=== PATIENT | female | born 1970 | race Caucasian/White ===

== ENCOUNTER 2016-08-22 12:04 | Inpatient (IN) | payer OTHER ==
[~2016-08-22] VITALS: Ht 157.5 cm; Wt 61.4 kg
[2016-08-22] VITALS (26 sets, daily range): BP systolic 100–179; BP diastolic 69–111; PULSE 62–109; TEMP 97.5–98.3
[2016-08-22] MEDS ORDERED: XANAX 0.5MG0.5 MG PO (12:09)
[2016-08-22] MEDS ORDERED: SOMA 350MG350 MG/TAB PO (12:09)
[2016-08-22] MEDS ORDERED: FIORINAL W/CODE1 CA2 PO (12:09)
[2016-08-22] MEDS ORDERED: AMBIEN 10MG10 MG PO (12:10)
[2016-08-22 12:50] LABS: BASO % 0.6 % (0.0-2.0); EOS # 0.2 (0.0-0.7); EOS % 2.7 % (0-4.0); GRAN % 63.5 % (42.2-75.2); LYMPH # 1.7 (1.2-3.4); LYMPH % 26.2 % (20.0-51.0); MEAN CELL VOLUME 76 fl (80.0-100.0); MEAN CORPUSCULAR HGB CONC 30 g/dl (33.0-37.0); MEAN PLATELET VOLUME 8.9 fl (7.4-10.4); MONO # 0.4 (0.1-0.6); PLATELET COUNT 453 K/mm3 (130-400); RED BLOOD COUNT 1.88 M/mm3 (4.10-5.30); REDCELL DISTRIBUTION WIDTH-CV 18.8 % (11.5-14.5); WHITE BLOOD COUNT 6.3 K/mm3 (4.8-10.8)
[2016-08-22 12:53] LABS: HEMOGLOBIN 4.3 g/dl (12.5-16.0); MEAN CORPUSCULAR HEMOGLOBIN 23 pg (27.0-31.0)
[2016-08-22 12:54] LABS: HEMATOCRIT 14.3 % (37.0-47.0)
[2016-08-22 13:05] LABS: ADJUSTED CALCIUM 9.3 mg/dL (8.4-10.2); ALBUMIN 2.9 gm/dL (3.5-5.0); BILIRUBIN,TOTAL 0.3 mg/dL (0.0-1.0); CALCIUM 8.4 mg/dL (8.4-10.2); CREATININE, serum 0.66 mg/dL (0.52-1.25); POTASSIUM 3.9 mmol/L (3.4-5.0)
[2016-08-22 18:59] LABS: HEMATOCRIT 27.7 % (37.0-47.0)
[2016-08-23] VITALS (7 sets, daily range): BP systolic 121–142; BP diastolic 70–84; PULSE 69–88; TEMP 98–98.3
[2016-08-23 09:07] LABS: MEAN CORPUSCULAR HGB CONC 34 g/dl (33.0-37.0); MEAN PLATELET VOLUME 9.5 fl (7.4-10.4); RED BLOOD COUNT 3.04 M/mm3 (4.10-5.30); REDCELL DISTRIBUTION WIDTH-CV 17.2 % (11.5-14.5); WHITE BLOOD COUNT 16.8 K/mm3 (4.8-10.8)
[2016-08-23 09:12] LABS: HEMOGLOBIN 8.5 g/dl (12.5-16.0); MEAN CELL VOLUME 82 fl (80.0-100.0); MEAN CORPUSCULAR HEMOGLOBIN 28 pg (27.0-31.0); PLATELET COUNT 320 K/mm3 (130-400)
[2016-08-23 09:13] LABS: ADD PATHOLOGY DIFF REVIEW NO
[2016-08-23 09:53] LABS: BAND 1 % (0-10); NEUTROPHILS 59 % (42.0-75.2); TOTAL CELLS COUNTED 100
[2016-08-24 05:15] VITALS: BP 127/74; PULSE 82; TEMP 98.7
[2016-08-24 07:00] VITALS: BP 131/84; PULSE 78; TEMP 98.1
[2016-08-24 12:01] VITALS: BP 128/76; PULSE 80; TEMP 98.2
[2016-08-24 17:10] VITALS: BP 122/86; PULSE 87; TEMP 98.2
[2016-08-24 22:45] VITALS: BP 119/80; PULSE 92; TEMP 98
[2016-08-25 08:05] VITALS: BP 111/80; PULSE 86; TEMP 97.7
[2016-08-25] MEDS ORDERED: IBU800 M1 PO (08:48)
[2016-08-25] MEDS ORDERED: PERCOCET 325 MG1 TA2 PO (08:48)
== END 2016-08-25 12:00 | disposition home or self-care (01) | DRG 743 ==
LOC: COL.ER 12:04 → OB 15:41
PROVIDERS: Emergency Medicine; Obstetrics & Gynecology
PROC: 0UTC0ZZ Resection of Cervix, Open Approach (ICD-10-PCS; 2016-08-22)
PROC: 0UB70ZZ Excision of Bilateral Fallopian Tubes, Open Approach (ICD-10-PCS; 2016-08-22)
PROC: 0UT90ZZ Resection of Uterus, Open Approach (ICD-10-PCS; principal; 2016-08-22 15:30)
DX: N92.0 Excessive and frequent menstruation with regular cycle (principal); D50.0 Iron deficiency anemia secondary to blood loss (chronic); D25.9 Leiomyoma of uterus, unspecified; Z87.891 Personal history of nicotine dependence
CPT/HCPCS: A4315; J0330; J0690; J1100; J1170; J1885; J2270; J2405; J2550; J2704; J2710; J2765; J3010; J7030; P9016

== ENCOUNTER → 2018-06-22 | Outpatient (CLI) | payer SELFPAY ==
[~2018-06-22] VITALS: Ht 157.5 cm; Wt 65.4 kg
[2018-06-22] VITALS (14 sets, daily range): BP systolic 118–146; BP diastolic 83–101; PULSE 90–103
[~2018-06-22] MED LIST: ACETA; AMBIEN 10MG10 MG PO; BUTAL; CAFF; COD; FIORINAL W/CODE1 CA2 PO; FLEXERIL 1010 MG/TAB PO; IBU800 M1 PO; LIDODERM 5% PATC1 EA TP; NORCO 325 MG-51 TAB PO; PERCOCET 325 MG1 TA2 PO; PREDNISONE20 MG PO; SOMA 350MG350 MG/TAB PO; VALTREX 50500 MG/TAB PO; XANAX 0.5MG0.5 MG PO
--- NOTE | 2018-06-22 14:35 | NUR ---
pt to ct per wheelchair. Pt assisted onto ct table in prone position. Monitors applied.
--- NOTE | 2018-06-22 14:45 | NUR ---
Dr Mcgrath into room and talks with pt. regarding procedure.
--- NOTE | 2018-06-22 15:00 | NUR ---
specimen obtained by Dr Mcgrath and placed in formalin. Specimen labeled.
== END ==
LOC: COL.RAD 11:00
DX: C79.51 Secondary malignant neoplasm of bone (principal); R91.1 Solitary pulmonary nodule; R59.0 Localized enlarged lymph nodes; N83.202 Unspecified ovarian cyst, left side; Z98.82 Breast implant status; Z85.42 Personal history of malignant neoplasm of other parts of uterus
CPT/HCPCS: Q9967

== ENCOUNTER 2018-06-25 11:58 | Emergency (ER) | payer SELFPAY ==
[~2018-06-25] VITALS: Ht 157.5 cm; Wt 62.7 kg
[2018-06-25 12:10] VITALS: TEMP 97.8
[2018-06-25] MEDS ORDERED: SOMA 350MG350 MG/TAB PO (12:48)
[2018-06-25] MEDS ORDERED: MS CONTIN 330 MG/TAB PO (12:49)
[2018-06-25] MEDS ORDERED: DECADRON 4MG TAB4 MG PO (12:50)
[2018-06-25 13:38] VITALS: BP 145/94; PULSE 109
== END 2018-06-25 13:53 | disposition short-term general hospital (02) ==
LOC: COL.ER 11:58
DX: G95.20 Unspecified cord compression (principal); Z87.891 Personal history of nicotine dependence; Z98.51 Tubal ligation status
CPT/HCPCS: J1100; J2060; J2270

== ENCOUNTER 2018-08-24 07:48 | Day surgery (SDC) | payer MEDICAID ==
[~2018-08-24] VITALS: Ht 157.5 cm; Wt 65.0 kg
[~2018-08-24 07:48] MED LIST changes: +DECADRON 4MG TAB4 MG PO; +MS CONTIN 330 MG/TAB PO
[2018-08-24 08:09] VITALS: BP 149/97; PULSE 101; TEMP 97.8
[2018-08-24] MEDS ORDERED: ROXICODONE 55 MG/TAB PO ×2 (08:09→10:17)
[2018-08-24] MEDS ORDERED: XANAX 1MG1 MG PO (08:09)
--- NOTE | 2018-08-24 08:42 | NUR ---
Notified Erwin Lewis CRNA that patient ate edible Marijuana gummies yesterday morning.
--- NOTE | 2018-08-24 09:00 | NUR ---
Notified Dr. Miranda of patient's use of edible marijuana yesterday AM.
[2018-08-24 10:17] VITALS: BP 155/96; PULSE 110; TEMP 98.3
--- NOTE | 2018-08-24 10:17 | NUR ---
Patient arrives to [facility] [place] 6 via cart, accomanied by OTF Bain and [employer] TENDER HELPER Monica. She is alert and oriented. Bedside report received. Patient denies any pain or nausea. Monitoring applied - VSS on room air. Family brought to the bedside. Dr. Miranda stops by the bedside and speaks with patient and family. Patient offered and receives juice to drink; does not want any other food. Call light usage taught and within reach. Will continue to monitor.
[2018-08-24 10:30] VITALS: BP 132/81; PULSE 103
--- NOTE | 2018-08-24 10:30 | NUR ---
VSS on room air. Patient resting comfortably in room. Denies any pain, nausea, or need. Tolerating PO well. Her operative site is covered by a clean, dry, intact dressing.
[2018-08-24 10:45] VITALS: BP 139/94; PULSE 105
--- NOTE | 2018-08-24 10:45 | NUR ---
VSS on room air. Patient resting comfortably in room. Family at bedside.
[2018-08-24 11:00] VITALS: BP 141/99; PULSE 97
--- NOTE | 2018-08-24 11:09 | NUR ---
Discharge criteria has been met. Discharge instructions discussed, denies any questions, and verbalizes understanding. Given paper packet including discharge instructions, education, [id number] card with information, and paper prescription for roxicodone. Patient changing to clothing independently.
--- NOTE | 2018-08-24 11:18 | NUR ---
Patient escorted to exit via wheelchair by SALLIE Wyatt. Discharged to home with ride in private vehicle at 1118.
== END 2018-08-24 11:18 | disposition home or self-care (01) ==
LOC: SDCO 07:48
DX: C54.2 Malignant neoplasm of myometrium (principal); C79.49 Secondary malignant neoplasm of other parts of nervous system; F32.9 Major depressive disorder, single episode, unspecified; G43.909 Migraine, unspecified, not intractable, without status migrainosus; I25.10 Atherosclerotic heart disease of native coronary artery without angina pectoris; E78.00 Pure hypercholesterolemia, unspecified; F41.9 Anxiety disorder, unspecified; Z90.710 Acquired absence of both cervix and uterus; Z90.79 Acquired absence of other genital organ(s); Z80.0 Family history of malignant neoplasm of digestive organs; Z82.61 Family history of arthritis; Z85.3 Personal history of malignant neoplasm of breast; Z82.3 Family history of stroke
CPT/HCPCS: C1788; J0690; J1644; J2250; J2704; J7120

== ENCOUNTER 2019-04-15 14:56 | Outpatient (RCR) | payer MEDICAID ==
[~2019-04-15 14:56] MED LIST changes: +ROXICODONE 55 MG/TAB PO; +XANAX 1MG1 MG PO
== END 2019-07-14 | disposition home or self-care (01) ==
LOC: MKS.ESL.PT
DX: C49.8 Malignant neoplasm of overlapping sites of connective and soft tissue (principal); I10 Essential (primary) hypertension

== ENCOUNTER → 2019-10-18 | Outpatient (CLI) | payer MEDICAID | LOC: COL.VAS 09:15 | DX: Z01.818 Encounter for other preprocedural examination (principal) ==

== ENCOUNTER → 2019-12-01 | Outpatient (CLI) | payer MEDICARE, MEDICAID | LOC: COL.RAD 07:53 | DX: C55 Malignant neoplasm of uterus, part unspecified (principal); R91.1 Solitary pulmonary nodule; R19.00 Intra-abdominal and pelvic swelling, mass and lump, unspecified site; Z90.710 Acquired absence of both cervix and uterus; Z98.82 Breast implant status; Z95.9 Presence of cardiac and vascular implant and graft, unspecified | CPT/HCPCS: J1644; Q9967 ==

== ENCOUNTER 2019-12-13 11:22 | Day surgery (SDC) | payer MEDICARE, MEDICAID ==
[~2019-12-13] VITALS: Ht 157.5 cm; Wt 60.2 kg
[2019-12-13 12:15] VITALS: BP 134/86; PULSE 81; TEMP 97.8
[2019-12-13] MEDS ORDERED: ROXICODONE 55 MG/TAB PO (12:21)
[2019-12-13] MEDS ORDERED: AMBIEN 10MG10 MG PO (12:22)
[2019-12-13] MEDS ORDERED: FIORICET 325 MG1 TA1 PO (12:22)
--- NOTE | 2019-12-13 12:23 | NUR ---
TO RM AT 1146- CALL LIGHT IN REACH FATHER WILL BE CALLED AT TIME OF DISCHARGE FOR RIDE HOME
[2019-12-13 13:43] VITALS: BP 131/92; PULSE 83; TEMP 97.3
--- NOTE | 2019-12-13 13:43 | NUR ---
TO RM 1 PER CART FROM OR. DROWSY AND ORIENTED X3, TALKING WITH STAFF. DENIES PAIN OR DISCOMFORT. SEROSANGUINOUS DRAINAGE NOTED UNDER OPSITE. RECEIVED WATER.
[2019-12-13 14:00] VITALS: BP 156/106; PULSE 61
--- NOTE | 2019-12-13 14:00 | NUR ---
SEROSANGUINOUS DRAINAGE UNCHANGED AND NO ACTIVE BLEEDING NOTED.
[2019-12-13 14:15] VITALS: BP 145/102; PULSE 60
[2019-12-13 14:30] VITALS: BP 152/97; PULSE 72
--- NOTE | 2019-12-13 14:30 | NUR ---
RECEIVED MUFFIN AND 2ND GLASS OF WATER.
--- NOTE | 2019-12-13 14:45 | NUR ---
AMBULATED TO BATHROOM WITH STAND BY ASSIST. VOIDED AND AMBULATED BACK TO BED. SAI FROM IV SERVICES CALLED CONCERNING CENTRAL LINE CARES.
--- NOTE | 2019-12-13 15:00 | NUR ---
RECEIVED DISCHARGE INSTRUCTIONS. TO KEEP CLEAN DRY AND COVERED. SAI HERE AND PLACED A CHLORHEXADINE DRESSING OVER SIEGEL INCISION SITE. MESSAGE LEFT WITH DR RUTHERFORD OFFICE FOR ANIKET. TO FOLLOW UP WITH SIEGEL DRESSING CHANGES TO BE DONE IN [facility]. PATIENT VERBALIZED UNDERSTANDING. IN INSTRUCTED HER TO FOLLOW UP WITH DR BARRERA OFFICE IF THEY HAVEN'T CALLED THER BY TOMORROW FOR ORDERS FOR DRESSING CHANGES.
--- NOTE | 2019-12-13 15:00 | NUR ---
Contacted regarding Umanzor cares. Hickmen catheter present right upper ches with sutures intact. op site on top of catheter. explained cares to patient. with sterile technique right upper chest catheter site cleansed with chloraprep x 1, chlorhexidine impregnated disk applied, skin prep, and tegaderm applied. catheter extension wrapped in gauze and secured with tegaderm. explained to keep dressing dry. to make sure catheter doesn't get caught on clothing and pulled out. RN reported Heparin was instilled. to return next week for cares in [place]. voiced understanding of instructions.
--- NOTE | 2019-12-13 15:20 | NUR ---
DISCHARGED PER WC BY NURSING STAFF TO PRIVATE CAR IN CARE OF FATHER.
== END 2019-12-13 15:42 | disposition home or self-care (01) ==
LOC: SDCO 11:22
DX: C54.2 Malignant neoplasm of myometrium (principal); C79.49 Secondary malignant neoplasm of other parts of nervous system; R63.4 Abnormal weight loss; D63.0 Anemia in neoplastic disease; Z88.8 Allergy status to other drugs, medicaments and biological substances; Z79.899 Other long term (current) drug therapy; Z80.0 Family history of malignant neoplasm of digestive organs
CPT/HCPCS: J0690; J1644; J2250; J2704; J3010; J7120

== ENCOUNTER 2020-03-13 10:30 | Outpatient (RCR) | payer MEDICARE, MEDICAID ==
[2019-12-15 14:45] VITALS: BP 119/82; PULSE 89; TEMP 98
--- NOTE | 2019-12-15 15:00 | NUR ---
patient here for cares. Patient has a nontender also been catheter present in her right upper chest. With sterile technique Umanzor dressing change done with insertion site cleansed with ChloraPrep 1, chlorhexidine impregnated disc applied, skin prep, and Tegaderm applied. No signs or symptoms of IV complications noted. No concerns voiced. Sutures intact. Extension wrapped in gauze and secured with Tegaderm. Port flushed with 10 mL normal saline with good blood return noted. Patient to return on December 19 for cares. Patient voiced understanding of instructions. Appointment card given to patient by primary care nurse.
[2019-12-20 14:44] LABS: HEMOGLOBIN 11.8 g/dl (12.5-16.0); MEAN CELL VOLUME 95 fl (80.0-100.0); MEAN CORPUSCULAR HEMOGLOBIN 31 pg (27.0-31.0); MEAN CORPUSCULAR HGB CONC 33 g/dl (33.0-37.0); MEAN PLATELET VOLUME 9.8 fl (7.4-10.4); PLATELET COUNT 232 K/mm3 (130-400); RED BLOOD COUNT 3.82 M/mm3 (4.10-5.30); REDCELL DISTRIBUTION WIDTH-CV 12.7 % (11.5-14.5)
[2019-12-20 14:48] VITALS: BP 133/82; PULSE 87; TEMP 98.1
[2019-12-20 14:53] LABS: HEMATOCRIT 36.2 % (37.0-47.0)
[2019-12-20 14:59] LABS: BILIRUBIN,TOTAL 0.4 mg/dL (0.0-1.0); CALCIUM 9.2 mg/dL (8.4-10.2); CREATININE, serum 0.86 (0.52-1.25); POTASSIUM 3.9 mmol/L (3.4-5.0); TOTAL PROTEIN 7.4 gm/dL (6.4-8.2)
[2019-12-20 15:36] LABS: BAND 1 % (0-10); EOSINOPHIL 4 % (0-4); HYPOCHROMIA 1+; LYMPHOCYTE 25 % (20.0-51.0); METAMYELOCYTE 1 % (0-0); NEUTROPHILS 61 % (42.0-75.2); PLATELET ESTIMATE NORMAL (NORMAL)
[2019-12-27 13:41] LABS: HEMOGLOBIN 11.9 g/dl (12.5-16.0); MEAN CELL VOLUME 95 fl (80.0-100.0); MEAN CORPUSCULAR HEMOGLOBIN 31 pg (27.0-31.0); MEAN CORPUSCULAR HGB CONC 33 g/dl (33.0-37.0); PLATELET COUNT 236 K/mm3 (130-400); RED BLOOD COUNT 3.85 M/mm3 (4.10-5.30); REDCELL DISTRIBUTION WIDTH-CV 12.5 % (11.5-14.5)
[2019-12-27 13:42] LABS: HEMATOCRIT 36.5 % (37.0-47.0)
[2019-12-27 13:48] VITALS: BP 121/79; PULSE 94; TEMP 98.4
[2019-12-27 13:59] LABS: EOSINOPHIL 2 % (0-4); NEUTROPHILS 69 % (42.0-75.2); PLATELET ESTIMATE NORMAL (NORMAL)
[2019-12-27 14:01] LABS: LYMPHOCYTE 28 % (20.0-51.0)
[2020-01-03 14:11] VITALS: BP 121/80; PULSE 104; TEMP 98.2
[2020-01-03 14:42] LABS: HEMOGLOBIN 10.5 g/dl (12.5-16.0); MEAN CELL VOLUME 94 fl (80.0-100.0); MEAN CORPUSCULAR HEMOGLOBIN 30 pg (27.0-31.0); MEAN CORPUSCULAR HGB CONC 32 g/dl (33.0-37.0); MEAN PLATELET VOLUME 9.1 fl (7.4-10.4); PLATELET COUNT 248 K/mm3 (130-400); REDCELL DISTRIBUTION WIDTH-CV 12.9 % (11.5-14.5)
[2020-01-03 14:45] LABS: ALBUMIN 3.8 gm/dL (3.5-5.0); BILIRUBIN,TOTAL 0.3 mg/dL (0.0-1.0); CALCIUM 9.1 mg/dL (8.4-10.2); CREATININE, serum 0.79 (0.52-1.25); HEMATOCRIT 32.9 % (37.0-47.0); POTASSIUM 3.8 mmol/L (3.4-5.0); TOTAL PROTEIN 7.1 gm/dL (6.4-8.2)
[2020-01-03 22:11] LABS: LYMPHOCYTE 27 % (20.0-51.0); NEUTROPHILS 65 % (42.0-75.2); PLATELET ESTIMATE NORMAL (NORMAL)
[2020-01-10 13:55] LABS: HEMOGLOBIN 10.5 g/dl (12.5-16.0); MEAN CELL VOLUME 95 fl (80.0-100.0); MEAN CORPUSCULAR HEMOGLOBIN 31 pg (27.0-31.0); MEAN CORPUSCULAR HGB CONC 33 g/dl (33.0-37.0); MEAN PLATELET VOLUME 8.9 fl (7.4-10.4); PLATELET COUNT 284 K/mm3 (130-400); RED BLOOD COUNT 3.37 M/mm3 (4.10-5.30); REDCELL DISTRIBUTION WIDTH-CV 13.2 % (11.5-14.5)
[2020-01-10 13:56] LABS: HEMATOCRIT 31.9 % (37.0-47.0)
[2020-01-10 13:58] VITALS: BP 110/79; PULSE 98; TEMP 97.9
[2020-01-10 14:14] LABS: LYMPHOCYTE 32 % (20.0-51.0); NEUTROPHILS 57 % (42.0-75.2); PLATELET ESTIMATE NORMAL (NORMAL)
--- NOTE | 2020-01-10 16:04 | NUR ---
PT CAME FOR SIEGEL CARES. THIS RN NOTED REDNESS AND MILD DRAINAGE FROM INSERTION SITE. WILL CALL DR RUTHERFORD'S OFFICE.
[2020-01-17 14:25] VITALS: BP 115/72; PULSE 82; TEMP 98.1
[2020-01-17 14:51] LABS: HEMOGLOBIN 11.4 g/dl (12.5-16.0); MEAN CELL VOLUME 94 fl (80.0-100.0); MEAN CORPUSCULAR HEMOGLOBIN 30 pg (27.0-31.0); MEAN CORPUSCULAR HGB CONC 32 g/dl (33.0-37.0); MEAN PLATELET VOLUME 9.4 fl (7.4-10.4); PLATELET COUNT 207 K/mm3 (130-400); RED BLOOD COUNT 3.76 M/mm3 (4.10-5.30); REDCELL DISTRIBUTION WIDTH-CV 13.2 % (11.5-14.5)
[2020-01-17 14:52] LABS: HEMATOCRIT 35.5 % (37.0-47.0)
[2020-01-17 15:31] LABS: BAND 5 % (0-10); LYMPHOCYTE 21 % (20.0-51.0); NEUTROPHILS 67 % (42.0-75.2); PLATELET ESTIMATE NORMAL (NORMAL)
--- NOTE | 2020-01-20 10:15 | NUR ---
Pt called unit and reported she got her dressing wet,requested dressing change today.apt made for today.will keep regular scheduled apt for tuesdays.
[2020-01-20 17:41] VITALS: BP 119/76; PULSE 94; TEMP 98.2
[2020-01-24 14:11] VITALS: BP 112/82; PULSE 95; TEMP 98
[2020-01-24 14:11] LABS: HEMOGLOBIN 10.5 g/dl (12.5-16.0); MEAN CELL VOLUME 94 fl (80.0-100.0); MEAN CORPUSCULAR HEMOGLOBIN 31 pg (27.0-31.0); MEAN CORPUSCULAR HGB CONC 33 g/dl (33.0-37.0); MEAN PLATELET VOLUME 9.1 fl (7.4-10.4); PLATELET COUNT 189 K/mm3 (130-400); RED BLOOD COUNT 3.38 M/mm3 (4.10-5.30); REDCELL DISTRIBUTION WIDTH-CV 13.3 % (11.5-14.5)
[2020-01-24 14:13] LABS: HEMATOCRIT 31.7 % (37.0-47.0)
[2020-01-24 14:34] LABS: ALBUMIN 3.8 gm/dL (3.5-5.0); BILIRUBIN,TOTAL 0.3 mg/dL (0.0-1.0); CREATININE, serum 0.8 (0.52-1.25); POTASSIUM 4.5 mmol/L (3.4-5.0)
[2020-01-24 15:02] LABS: EOSINOPHIL 1 % (0-4); LYMPHOCYTE 34 % (20.0-51.0); METAMYELOCYTE 1 % (0-0); NEUTROPHILS 52 % (42.0-75.2)
[2020-01-24 15:03] LABS: PLATELET ESTIMATE NORMAL (NORMAL)
[2020-01-31 11:41] VITALS: BP 126/83; PULSE 97; TEMP 98.6
[2020-01-31 11:55] LABS: MEAN CELL VOLUME 94 fl (80.0-100.0); MEAN CORPUSCULAR HEMOGLOBIN 31 pg (27.0-31.0); MEAN CORPUSCULAR HGB CONC 33 g/dl (33.0-37.0); MEAN PLATELET VOLUME 8.8 fl (7.4-10.4); PLATELET COUNT 285 K/mm3 (130-400); RED BLOOD COUNT 3.54 M/mm3 (4.10-5.30); REDCELL DISTRIBUTION WIDTH-CV 13.8 % (11.5-14.5)
[2020-01-31 11:57] LABS: HEMATOCRIT 33.1 % (37.0-47.0)
[2020-01-31 12:05] LABS: ALBUMIN 4.3 gm/dL (3.5-5.0); BILIRUBIN,TOTAL 0.3 mg/dL (0.0-1.0); CALCIUM 9.6 mg/dL (8.4-10.2); CREATININE, serum 0.82 (0.52-1.25); POTASSIUM 3.9 mmol/L (3.4-5.0); TOTAL PROTEIN 7.6 gm/dL (6.4-8.2)
[2020-01-31 12:13] LABS: BAND 1 % (0-10); BASOPHIL 1 % (0-2); EOSINOPHIL 1 % (0-4); LYMPHOCYTE 37 % (20.0-51.0); METAMYELOCYTE 1 % (0-0); NEUTROPHILS 48 % (42.0-75.2); NUCLEATED RED BLOOD CELL 1 (0-6); PLATELET ESTIMATE NORMAL (NORMAL)
[2020-02-07 17:12] VITALS: BP 116/77; PULSE 95; TEMP 97.8
[2020-02-07 17:12] LABS: HEMOGLOBIN 10.2 g/dl (12.5-16.0); MEAN CELL VOLUME 94 fl (80.0-100.0); MEAN CORPUSCULAR HEMOGLOBIN 31 pg (27.0-31.0); MEAN CORPUSCULAR HGB CONC 33 g/dl (33.0-37.0); PLATELET COUNT 225 K/mm3 (130-400); RED BLOOD COUNT 3.25 M/mm3 (4.10-5.30); REDCELL DISTRIBUTION WIDTH-CV 13.8 % (11.5-14.5)
[2020-02-07 17:27] LABS: ALBUMIN 3.9 gm/dL (3.5-5.0); BILIRUBIN,TOTAL 0.2 mg/dL (0.0-1.0); CALCIUM 8.7 mg/dL (8.4-10.2); CREATININE, serum 0.85 (0.52-1.25); POTASSIUM 4.3 mmol/L (3.4-5.0)
[2020-02-07 17:58] LABS: HEMATOCRIT 30.6 % (37.0-47.0)
[2020-02-07 18:37] LABS: BAND 1 % (0-10); BASOPHIL 2 % (0-2); NEUTROPHILS 68 % (42.0-75.2); PLATELET ESTIMATE NORMAL (NORMAL)
[2020-02-07 18:38] LABS: LYMPHOCYTE 27 % (20.0-51.0)
[2020-02-14 14:18] VITALS: BP 107/66; PULSE 96; TEMP 98.2
[2020-02-14 14:27] LABS: ALBUMIN 3.9 gm/dL (3.5-5.0); BILIRUBIN,TOTAL 0.1 mg/dL (0.0-1.0); CALCIUM 8.9 mg/dL (8.4-10.2); CREATININE, serum 0.77 (0.52-1.25); POTASSIUM 3.9 mmol/L (3.4-5.0); TOTAL PROTEIN 6.8 gm/dL (6.4-8.2)
[2020-02-14 14:47] LABS: MEAN CELL VOLUME 94 fl (80.0-100.0); MEAN CORPUSCULAR HGB CONC 33 g/dl (33.0-37.0); MEAN PLATELET VOLUME 9.4 fl (7.4-10.4); PLATELET COUNT 173 K/mm3 (130-400); RED BLOOD COUNT 2.96 M/mm3 (4.10-5.30)
[2020-02-14 14:51] LABS: HEMATOCRIT 27.9 % (37.0-47.0); HEMOGLOBIN 9.2 g/dl (12.5-16.0); MEAN CORPUSCULAR HEMOGLOBIN 31 pg (27.0-31.0)
[2020-02-14 15:19] LABS: EOSINOPHIL 3 % (0-4); LYMPHOCYTE 45 % (20.0-51.0); MYELOCYTE 2 % (0-0); NEUTROPHILS 42 % (42.0-75.2); PLATELET ESTIMATE NORMAL (NORMAL)
[2020-02-17 13:44] LABS: MEAN CELL VOLUME 95 fl (80.0-100.0); MEAN CORPUSCULAR HGB CONC 33 g/dl (33.0-37.0); MEAN PLATELET VOLUME 8.8 fl (7.4-10.4); PLATELET COUNT 224 K/mm3 (130-400); RED BLOOD COUNT 2.79 M/mm3 (4.10-5.30); REDCELL DISTRIBUTION WIDTH-CV 14.3 % (11.5-14.5)
[2020-02-17 13:51] LABS: HEMATOCRIT 26.5 % (37.0-47.0); HEMOGLOBIN 8.7 g/dl (12.5-16.0); MEAN CORPUSCULAR HEMOGLOBIN 31 pg (27.0-31.0)
[2020-02-17 14:08] LABS: BAND 6 % (0-10); EOSINOPHIL 3 % (0-4); LYMPHOCYTE 48 % (20.0-51.0); METAMYELOCYTE 1 % (0-0); NEUTROPHILS 32 % (42.0-75.2)
[2020-02-17 14:09] LABS: PLATELET ESTIMATE NORMAL (NORMAL)
[2020-02-21 16:02] LABS: HEMOGLOBIN 10.1 g/dl (12.5-16.0); MEAN CELL VOLUME 95 fl (80.0-100.0); MEAN CORPUSCULAR HEMOGLOBIN 31 pg (27.0-31.0); MEAN CORPUSCULAR HGB CONC 33 g/dl (33.0-37.0); MEAN PLATELET VOLUME 8.9 fl (7.4-10.4); PLATELET COUNT 262 K/mm3 (130-400); RED BLOOD COUNT 3.24 M/mm3 (4.10-5.30); REDCELL DISTRIBUTION WIDTH-CV 14.8 % (11.5-14.5)
[2020-02-21 16:03] LABS: HEMATOCRIT 30.7 % (37.0-47.0)
[2020-02-21 16:13] LABS: ALBUMIN 4.1 gm/dL (3.5-5.0); BILIRUBIN,TOTAL 0.2 mg/dL (0.0-1.0); CALCIUM 9.1 mg/dL (8.4-10.2); CREATININE, serum 0.8 (0.52-1.25); POTASSIUM 4.1 mmol/L (3.4-5.0); TOTAL PROTEIN 7.1 gm/dL (6.4-8.2)
[2020-02-21 16:29] VITALS: BP 128/82; PULSE 94; TEMP 98
[2020-02-21 17:17] LABS: ANISOCYTOSIS 1+; BAND 1 % (0-10); EOSINOPHIL 1 % (0-4); LYMPHOCYTE 43 % (20.0-51.0); MYELOCYTE 2 % (0-0); NEUTROPHILS 40 % (42.0-75.2); PLATELET ESTIMATE NORMAL (NORMAL)
[2020-02-28 13:54] LABS: MEAN CELL VOLUME 96 fl (80.0-100.0); MEAN CORPUSCULAR HEMOGLOBIN 32 pg (27.0-31.0); MEAN CORPUSCULAR HGB CONC 33 g/dl (33.0-37.0); PLATELET COUNT 224 K/mm3 (130-400); RED BLOOD COUNT 3.17 M/mm3 (4.10-5.30); REDCELL DISTRIBUTION WIDTH-CV 15.3 % (11.5-14.5)
[2020-02-28 13:58] LABS: HEMATOCRIT 30.3 % (37.0-47.0)
[2020-02-28 14:00] VITALS: BP 137/93; PULSE 97; TEMP 98
[2020-02-28 14:18] LABS: BAND 53 % (0-10); LYMPHOCYTE 7 % (20.0-51.0); NEUTROPHILS 17 % (42.0-75.2)
[2020-02-28 14:19] LABS: PLATELET ESTIMATE NORMAL (NORMAL)
[2020-03-06 12:52] VITALS: BP 118/81; PULSE 93; TEMP 97.9
[2020-03-06 12:57] LABS: MEAN CELL VOLUME 97 fl (80.0-100.0); MEAN CORPUSCULAR HGB CONC 33 g/dl (33.0-37.0); MEAN PLATELET VOLUME 9.4 fl (7.4-10.4); PLATELET COUNT 188 K/mm3 (130-400); RED BLOOD COUNT 3.13 M/mm3 (4.10-5.30)
[2020-03-06 13:12] LABS: ALBUMIN 4.2 gm/dL (3.5-5.0); BILIRUBIN,TOTAL 0.2 mg/dL (0.0-1.0); CREATININE, serum 1.13 (0.52-1.25); TOTAL PROTEIN 7.2 gm/dL (6.4-8.2)
[2020-03-06 13:13] LABS: HEMATOCRIT 30.2 % (37.0-47.0); HEMOGLOBIN 9.9 g/dl (12.5-16.0); MEAN CORPUSCULAR HEMOGLOBIN 32 pg (27.0-31.0)
[2020-03-06 13:46] LABS: ANISOCYTOSIS 2+; EOSINOPHIL 4 % (0-4); LYMPHOCYTE 39 % (20.0-51.0); NEUTROPHILS 53 % (42.0-75.2); PLATELET ESTIMATE NORMAL (NORMAL); TOXIC GRANULATION PRESENT
[~2020-03-13] VITALS: Ht 157.5 cm; Wt 62.2 kg
[~2020-03-13 10:30] MED LIST changes: +FIORICET 325 MG1 TA1 PO
[2020-03-13 16:03] LABS: MEAN CELL VOLUME 97 fl (80.0-100.0); MEAN CORPUSCULAR HGB CONC 34 g/dl (33.0-37.0); MEAN PLATELET VOLUME 9.3 fl (7.4-10.4); PLATELET COUNT 209 K/mm3 (130-400); RED BLOOD COUNT 2.75 M/mm3 (4.10-5.30); REDCELL DISTRIBUTION WIDTH-CV 15.1 % (11.5-14.5)
[2020-03-13 16:07] LABS: HEMATOCRIT 26.6 % (37.0-47.0); HEMOGLOBIN 8.9 g/dl (12.5-16.0); MEAN CORPUSCULAR HEMOGLOBIN 32 pg (27.0-31.0)
[2020-03-13 16:44] LABS: ANISOCYTOSIS 2+; BAND 2 % (0-10); EOSINOPHIL 6 % (0-4); HYPOCHROMIA 1+; LYMPHOCYTE 26 % (20.0-51.0); MYELOCYTE 2 % (0-0); NEUTROPHILS 63 % (42.0-75.2); PLATELET ESTIMATE NORMAL (NORMAL)
[2020-03-13 17:39] VITALS: BP 146/85; PULSE 90; TEMP 98
== END 2020-03-14 | disposition home or self-care (01) ==
LOC: EUO
PROVIDERS: Internal Medicine; Internal Medicine Medical Oncology
DX: C55 Malignant neoplasm of uterus, part unspecified (principal)
CPT/HCPCS: J1644

== ENCOUNTER 2020-06-14 15:00 | Outpatient (RCR) | payer MEDICARE, MEDICAID ==
[2020-03-20 10:53] VITALS: BP 125/79; PULSE 95; TEMP 98.1
[2020-03-20 11:56] LABS: HEMATOCRIT 28.7 % (37.0-47.0); HEMOGLOBIN 9.6 g/dl (12.5-16.0); MEAN CELL VOLUME 98 fl (80.0-100.0); MEAN CORPUSCULAR HEMOGLOBIN 33 pg (27.0-31.0); MEAN CORPUSCULAR HGB CONC 33 g/dl (33.0-37.0); PLATELET COUNT 297 K/mm3 (130-400); RED BLOOD COUNT 2.93 M/mm3 (4.10-5.30); REDCELL DISTRIBUTION WIDTH-CV 15.4 % (11.5-14.5)
[2020-03-20 12:07] LABS: BAND 4 % (0-10); BASOPHIL 1 % (0-2); EOSINOPHIL 4 % (0-4); LYMPHOCYTE 44 % (20.0-51.0); NEUTROPHILS 38 % (42.0-75.2); PLATELET ESTIMATE NORMAL (NORMAL)
[2020-03-27 14:03] VITALS: BP 113/84; PULSE 98; TEMP 98.4
[2020-03-27 14:36] LABS: MEAN CELL VOLUME 99 fl (80.0-100.0); MEAN CORPUSCULAR HGB CONC 33 g/dl (33.0-37.0); MEAN PLATELET VOLUME 8.9 fl (7.4-10.4); PLATELET COUNT 210 K/mm3 (130-400); RED BLOOD COUNT 2.96 M/mm3 (4.10-5.30)
[2020-03-27 14:37] LABS: HEMATOCRIT 29.2 % (37.0-47.0); HEMOGLOBIN 9.7 g/dl (12.5-16.0); MEAN CORPUSCULAR HEMOGLOBIN 33 pg (27.0-31.0)
[2020-03-27 14:55] LABS: EOSINOPHIL 3 % (0-4); LYMPHOCYTE 37 % (20.0-51.0); METAMYELOCYTE 1 % (0-0); NEUTROPHILS 56 % (42.0-75.2)
[2020-03-27 14:56] LABS: ANISOCYTOSIS 2+
[2020-04-03 18:09] LABS: MEAN CELL VOLUME 99 fl (80.0-100.0); MEAN CORPUSCULAR HGB CONC 34 g/dl (33.0-37.0); MEAN PLATELET VOLUME 9.1 fl (7.4-10.4); PLATELET COUNT 190 K/mm3 (130-400); RED BLOOD COUNT 2.88 M/mm3 (4.10-5.30); REDCELL DISTRIBUTION WIDTH-CV 14.7 % (11.5-14.5)
[2020-04-03 18:14] VITALS: BP 116/83; PULSE 99; TEMP 97.9
[2020-04-03 18:16] LABS: HEMATOCRIT 28.5 % (37.0-47.0); HEMOGLOBIN 9.6 g/dl (12.5-16.0); MEAN CORPUSCULAR HEMOGLOBIN 33 pg (27.0-31.0)
[2020-04-03 18:18] LABS: ALBUMIN 3.9 gm/dL (3.5-5.0); BILIRUBIN,TOTAL 0.3 mg/dL (0.0-1.0); CREATININE, serum 0.89 (0.52-1.25); MAGNESIUM 1.9 mg/dL (1.6-2.3); PHOSPHOROUS 4.1 mg/dL (2.5-4.5); POTASSIUM 3.8 mmol/L (3.4-5.0); TOTAL PROTEIN 6.9 gm/dL (6.4-8.2)
[2020-04-03 19:07] LABS: BAND 4 % (0-10); EOSINOPHIL 4 % (0-4); LYMPHOCYTE 39 % (20.0-51.0); NEUTROPHILS 51 % (42.0-75.2)
[2020-04-03 19:13] LABS: PLATELET ESTIMATE NORMAL (NORMAL)
[2020-04-10 12:36] LABS: MEAN CELL VOLUME 99 fl (80.0-100.0); MEAN CORPUSCULAR HGB CONC 34 g/dl (33.0-37.0); MEAN PLATELET VOLUME 8.9 fl (7.4-10.4); PLATELET COUNT 253 K/mm3 (130-400); RED BLOOD COUNT 2.79 M/mm3 (4.10-5.30); REDCELL DISTRIBUTION WIDTH-CV 14.8 % (11.5-14.5)
[2020-04-10 12:38] LABS: HEMATOCRIT 27.7 % (37.0-47.0); HEMOGLOBIN 9.4 g/dl (12.5-16.0); MEAN CORPUSCULAR HEMOGLOBIN 34 pg (27.0-31.0)
[2020-04-10 12:39] VITALS: BP 128/82; PULSE 91; TEMP 97.7
[2020-04-10 12:58] LABS: EOSINOPHIL 2 % (0-4); LYMPHOCYTE 41 % (20.0-51.0); MYELOCYTE 1 % (0-0); NEUTROPHILS 45 % (42.0-75.2); PLATELET ESTIMATE NORMAL (NORMAL)
[2020-04-10 12:59] LABS: ANISOCYTOSIS 3+; SCHISTOCYTES 1+
--- NOTE | 2020-04-17 13:23 | NUR ---
Pt arrived to for dressing change of central line.Integrity of dressing is loose.Pt picking at edges of dressing with bare hands upon this nurse walking into room.Pt has maria bandaid covering dressing and line taped up with adhesive tape.Educated patient on need for edges to dave intact of dressing.pt cannot pick at dressing or change dressing at home.Educated pt if dressing is loose to call [facility] and we will get her an apt the same day.Pt reports dressing does not last the whole week and gets wet during shower regardless of what saran wrap she uses.Scheduled pt for a dressing change on Thursday.
[2020-04-17 13:24] LABS: MEAN CELL VOLUME 100 fl (80.0-100.0); MEAN CORPUSCULAR HGB CONC 34 g/dl (33.0-37.0); MEAN PLATELET VOLUME 9.1 fl (7.4-10.4); PLATELET COUNT 192 K/mm3 (130-400); RED BLOOD COUNT 2.72 M/mm3 (4.10-5.30); REDCELL DISTRIBUTION WIDTH-CV 13.8 % (11.5-14.5)
[2020-04-17 13:26] LABS: HEMATOCRIT 27.1 % (37.0-47.0); HEMOGLOBIN 9.1 g/dl (12.5-16.0); MEAN CORPUSCULAR HEMOGLOBIN 33 pg (27.0-31.0)
[2020-04-17 13:30] VITALS: BP 118/89; PULSE 89; TEMP 98
[2020-04-17 13:35] LABS: ALBUMIN 4.2 gm/dL (3.5-5.0); BILIRUBIN,TOTAL 0.3 mg/dL (0.0-1.0); CALCIUM 8.7 mg/dL (8.4-10.2); CREATININE, serum 0.96 (0.52-1.25); POTASSIUM 4.3 mmol/L (3.4-5.0); TOTAL PROTEIN 7.1 gm/dL (6.4-8.2)
[2020-04-17 13:58] LABS: BAND 3 % (0-10); EOSINOPHIL 3 % (0-4); NEUTROPHILS 50 % (42.0-75.2); PLATELET ESTIMATE NORMAL (NORMAL)
[2020-04-17 14:02] LABS: LYMPHOCYTE 38 % (20.0-51.0)
--- NOTE | 2020-04-20 19:46 | NUR ---
Pt stopped by [facility] today for possible dressing change. I evaluated her dressing which was clean dry and intact. No dressing change required.Pt did not have any labs due today, and the 2nd dressing change is optional, so pt left planning to return thursday for care of her central line and lab draw.
[2020-04-24 14:25] VITALS: BP 117/71; PULSE 90; TEMP 98
[2020-04-24 14:37] LABS: MEAN CELL VOLUME 100 fl (80.0-100.0); MEAN CORPUSCULAR HGB CONC 34 g/dl (33.0-37.0); MEAN PLATELET VOLUME 9.3 fl (7.4-10.4); PLATELET COUNT 159 K/mm3 (130-400); RED BLOOD COUNT 2.48 M/mm3 (4.10-5.30); REDCELL DISTRIBUTION WIDTH-CV 13.8 % (11.5-14.5)
[2020-04-24 14:46] LABS: ALBUMIN 3.8 gm/dL (3.5-5.0); BILIRUBIN,TOTAL 0.2 mg/dL (0.0-1.0); CREATININE, serum 0.89 (0.52-1.25); MAGNESIUM 2.2 mg/dL (1.6-2.3); PHOSPHOROUS 4.5 mg/dL (2.5-4.5); TOTAL PROTEIN 6.6 gm/dL (6.4-8.2)
[2020-04-24 14:50] LABS: HEMATOCRIT 24.8 % (37.0-47.0); HEMOGLOBIN 8.4 g/dl (12.5-16.0); MEAN CORPUSCULAR HEMOGLOBIN 34 pg (27.0-31.0)
[2020-04-24 15:48] LABS: BAND 3 % (0-10); EOSINOPHIL 3 % (0-4); MYELOCYTE 2 % (0-0); NEUTROPHILS 39 % (42.0-75.2); PLATELET ESTIMATE NORMAL (NORMAL)
[2020-04-24 15:49] LABS: LYMPHOCYTE 38 % (20.0-51.0)
[2020-04-25 08:24] LABS: PATHOLOGY DIFF REVIEW OK
[2020-05-01 14:39] VITALS: BP 107/70; PULSE 63; TEMP 98.8
[2020-05-01 14:54] LABS: MEAN CELL VOLUME 97 fl (80.0-100.0); MEAN CORPUSCULAR HGB CONC 34 g/dl (33.0-37.0); MEAN PLATELET VOLUME 9.3 fl (7.4-10.4); PLATELET COUNT 205 K/mm3 (130-400); RED BLOOD COUNT 2.27 M/mm3 (4.10-5.30); REDCELL DISTRIBUTION WIDTH-CV 14.1 % (11.5-14.5)
[2020-05-01 15:06] LABS: ALBUMIN 3.7 gm/dL (3.5-5.0); BILIRUBIN,TOTAL 0.3 mg/dL (0.0-1.0); CALCIUM 8.4 mg/dL (8.4-10.2); CREATININE, serum 0.93 (0.52-1.25); POTASSIUM 3.5 mmol/L (3.4-5.0); TOTAL PROTEIN 6.7 gm/dL (6.4-8.2)
[2020-05-01 15:41] LABS: BAND 6 % (0-10); LYMPHOCYTE 17 % (20.0-51.0); METAMYELOCYTE 2 % (0-0); MYELOCYTE 1 % (0-0); NEUTROPHILS 53 % (42.0-75.2)
[2020-05-01 15:42] LABS: PLATELET ESTIMATE NORMAL (NORMAL)
[2020-05-01 15:44] LABS: HEMATOCRIT 22.1 % (37.0-47.0); HEMOGLOBIN 7.6 g/dl (12.5-16.0); MEAN CORPUSCULAR HEMOGLOBIN 33 pg (27.0-31.0)
[2020-05-02 07:37] LABS: PATHOLOGY DIFF REVIEW OK
[2020-05-04 17:46] VITALS: BP 101/72; PULSE 61; TEMP 97.6
[2020-05-08 12:05] LABS: MEAN CELL VOLUME 101 fl (80.0-100.0); MEAN CORPUSCULAR HGB CONC 33 g/dl (33.0-37.0); PLATELET COUNT 448 K/mm3 (130-400); RED BLOOD COUNT 2.46 M/mm3 (4.10-5.30); REDCELL DISTRIBUTION WIDTH-CV 14.2 % (11.5-14.5)
[2020-05-08 12:55] LABS: BAND 8 % (0-10); EOSINOPHIL 1 % (0-4); LYMPHOCYTE 27 % (20.0-51.0); METAMYELOCYTE 2 % (0-0); NEUTROPHILS 62 % (42.0-75.2); PLATELET ESTIMATE INCREASED (NORMAL)
[2020-05-08 12:56] LABS: HEMATOCRIT 24.9 % (37.0-47.0); HEMOGLOBIN 8.1 g/dl (12.5-16.0); MEAN CORPUSCULAR HEMOGLOBIN 33 pg (27.0-31.0)
[2020-05-08 13:04] VITALS: BP 110/75; PULSE 91; TEMP 98.6
[2020-05-11 16:05] VITALS: BP 117/84; PULSE 95; TEMP 98.4
[2020-05-15 15:16] LABS: MEAN CELL VOLUME 100 fl (80.0-100.0); MEAN CORPUSCULAR HGB CONC 33 g/dl (33.0-37.0); MEAN PLATELET VOLUME 8.5 fl (7.4-10.4); PLATELET COUNT 364 K/mm3 (130-400); RED BLOOD COUNT 2.44 M/mm3 (4.10-5.30); REDCELL DISTRIBUTION WIDTH-CV 14.8 % (11.5-14.5)
[2020-05-15 15:27] LABS: ALBUMIN 4.2 gm/dL (3.5-5.0); BILIRUBIN,TOTAL 0.3 mg/dL (0.0-1.0); CALCIUM 9.1 mg/dL (8.4-10.2); CREATININE, serum 0.96 (0.52-1.25); MAGNESIUM 2.4 mg/dL (1.6-2.3); PHOSPHOROUS 3.5 mg/dL (2.5-4.5); POTASSIUM 3.7 mmol/L (3.4-5.0); TOTAL PROTEIN 7.6 gm/dL (6.4-8.2)
[2020-05-15 16:37] VITALS: BP 114/81; PULSE 103; TEMP 98.8
[2020-05-15 16:54] LABS: HEMATOCRIT 24.5 % (37.0-47.0); MEAN CORPUSCULAR HEMOGLOBIN 33 pg (27.0-31.0)
[2020-05-15 17:06] LABS: BAND 2 % (0-10); EOSINOPHIL 1 % (0-4); LYMPHOCYTE 12 % (20.0-51.0); METAMYELOCYTE 1 % (0-0); NEUTROPHILS 76 % (42.0-75.2)
[2020-05-15 17:08] LABS: HYPOCHROMIA 1+; PLATELET ESTIMATE NORMAL (NORMAL)
--- NOTE | 2020-05-18 17:40 | NUR ---
Pt came for evaluation of central line dressing. Dressing is intact, plan for lab draw and dressing change on Tuesday 05/22.
[2020-05-21 17:18] VITALS: BP 125/84; PULSE 84; TEMP 98.1
[2020-05-21 17:22] LABS: MEAN CELL VOLUME 101 fl (80.0-100.0); MEAN CORPUSCULAR HGB CONC 31 g/dl (33.0-37.0); MEAN PLATELET VOLUME 8.9 fl (7.4-10.4); PLATELET COUNT 377 K/mm3 (130-400); RED BLOOD COUNT 2.43 M/mm3 (4.10-5.30); REDCELL DISTRIBUTION WIDTH-CV 14.6 % (11.5-14.5)
[2020-05-21 17:25] LABS: HEMATOCRIT 24.5 % (37.0-47.0); HEMOGLOBIN 7.7 g/dl (12.5-16.0); MEAN CORPUSCULAR HEMOGLOBIN 32 pg (27.0-31.0)
[2020-05-21 17:48] LABS: ANISOCYTOSIS 1+; BAND 2 % (0-10); EOSINOPHIL 4 % (0-4); LYMPHOCYTE 32 % (20.0-51.0); MYELOCYTE 3 % (0-0); NEUTROPHILS 49 % (42.0-75.2); PLATELET ESTIMATE NORMAL (NORMAL); STOMATOCYTE 1+
[2020-05-25 15:58] VITALS: BP 120/78; PULSE 80; TEMP 98.2
[2020-05-29 13:23] VITALS: BP 141/90; PULSE 86; TEMP 97.9
[2020-05-29 13:24] LABS: MEAN CELL VOLUME 101 fl (80.0-100.0); MEAN CORPUSCULAR HGB CONC 32 g/dl (33.0-37.0); MEAN PLATELET VOLUME 8.7 fl (7.4-10.4); PLATELET COUNT 332 K/mm3 (130-400); REDCELL DISTRIBUTION WIDTH-CV 15.3 % (11.5-14.5)
[2020-05-29 13:28] LABS: HEMATOCRIT 29.4 % (37.0-47.0); HEMOGLOBIN 9.4 g/dl (12.5-16.0); MEAN CORPUSCULAR HEMOGLOBIN 32 pg (27.0-31.0)
[2020-05-29 13:38] LABS: BILIRUBIN,TOTAL 0.2 mg/dL (0.0-1.0); CALCIUM 9.7 mg/dL (8.4-10.2); CREATININE, serum 0.98 (0.52-1.25); MAGNESIUM 2.1 mg/dL (1.6-2.3); PHOSPHOROUS 3.8 mg/dL (2.5-4.5); POTASSIUM 4.2 mmol/L (3.4-5.0); TOTAL PROTEIN 7.5 gm/dL (6.4-8.2)
[2020-05-29 14:00] LABS: BAND 1 % (0-10); EOSINOPHIL 2 % (0-4); LYMPHOCYTE 27 % (20.0-51.0); MYELOCYTE 3 % (0-0); NEUTROPHILS 62 % (42.0-75.2); PLATELET ESTIMATE NORMAL (NORMAL)
[2020-05-29 14:02] LABS: HYPOCHROMIA 1+
[2020-05-29 14:03] LABS: ANISOCYTOSIS 1+
[2020-06-01 16:15] VITALS: BP 113/78; PULSE 86; TEMP 97.6
[2020-06-06 16:49] LABS: MEAN CELL VOLUME 100 fl (80.0-100.0); MEAN CORPUSCULAR HGB CONC 32 g/dl (33.0-37.0); MEAN PLATELET VOLUME 8.7 fl (7.4-10.4); PLATELET COUNT 224 K/mm3 (130-400); RED BLOOD COUNT 3.08 M/mm3 (4.10-5.30)
[2020-06-06 16:53] VITALS: BP 145/97; PULSE 96; TEMP 98.2
[2020-06-06 17:07] LABS: HEMATOCRIT 30.8 % (37.0-47.0); HEMOGLOBIN 9.9 g/dl (12.5-16.0); MEAN CORPUSCULAR HEMOGLOBIN 32 pg (27.0-31.0)
[2020-06-06 17:53] LABS: EOSINOPHIL 4 % (0-4); LYMPHOCYTE 38 % (20.0-51.0); NEUTROPHILS 53 % (42.0-75.2)
[2020-06-06 17:54] LABS: ANISOCYTOSIS 1+; HYPOCHROMIA 1+; PLATELET ESTIMATE NORMAL (NORMAL)
[2020-06-11 12:54] LABS: HEMOGLOBIN 10.5 g/dl (12.5-16.0); MEAN CELL VOLUME 99 fl (80.0-100.0); MEAN CORPUSCULAR HEMOGLOBIN 32 pg (27.0-31.0); MEAN CORPUSCULAR HGB CONC 32 g/dl (33.0-37.0); MEAN PLATELET VOLUME 9.2 fl (7.4-10.4); PLATELET COUNT 201 K/mm3 (130-400); RED BLOOD COUNT 3.26 M/mm3 (4.10-5.30); REDCELL DISTRIBUTION WIDTH-CV 14.6 % (11.5-14.5)
[2020-06-11 13:07] LABS: HEMATOCRIT 32.4 % (37.0-47.0)
[2020-06-11 13:39] LABS: EOSINOPHIL 4 % (0-4); LYMPHOCYTE 21 % (20.0-51.0); NEUTROPHILS 65 % (42.0-75.2)
[2020-06-11 13:41] LABS: PLATELET ESTIMATE NORMAL (NORMAL)
[~2020-06-14] VITALS: Ht 157.5 cm; Wt 61.0 kg
[~2020-06-14 15:00] MED LIST changes: +ZOFRAN8 MG PO
[2020-06-14 16:17] VITALS: BP 135/97; PULSE 91; TEMP 98.2
--- NOTE | 2020-06-14 17:12 | NUR ---
Pt's chart will be broken down and sent to HIM. She is scheduled Thursday morning at 1030 at to have her hybrid marrufo removed.
== END 2020-06-14 17:20 | disposition still patient (30) ==
LOC: EUO 15:00
PROVIDERS: Internal Medicine; Internal Medicine Medical Oncology
DX: C55 Malignant neoplasm of uterus, part unspecified (principal); Z95.9 Presence of cardiac and vascular implant and graft, unspecified
CPT/HCPCS: J1644

== ENCOUNTER 2021-03-15 14:00 | Outpatient (RCR) | payer MEDICARE, MEDICAID ==
[2020-12-18 17:13] VITALS: BP 131/87; PULSE 92; TEMP 98.5
[2020-12-18 17:34] LABS: HEMOGLOBIN 11.3 g/dl (12.5-16.0); MEAN CELL VOLUME 95 fl (80.0-100.0); MEAN CORPUSCULAR HEMOGLOBIN 31 pg (27.0-31.0); MEAN CORPUSCULAR HGB CONC 33 g/dl (33.0-37.0); MEAN PLATELET VOLUME 9.4 fl (7.4-10.4); PLATELET COUNT 242 K/mm3 (130-400); RED BLOOD COUNT 3.62 M/mm3 (4.10-5.30); REDCELL DISTRIBUTION WIDTH-CV 12.9 % (11.5-14.5)
[2020-12-18 17:35] LABS: HEMATOCRIT 34.3 % (37.0-47.0)
[2020-12-18 17:41] LABS: ALBUMIN 4.2 gm/dL (3.5-5.0); BILIRUBIN,TOTAL 0.2 mg/dL (0.0-1.0); CALCIUM 9.3 mg/dL (8.4-10.2); CREATININE, serum 1.08 (0.52-1.25); MAGNESIUM 2.1 mg/dL (1.6-2.3); POTASSIUM 3.7 mmol/L (3.4-5.0); TOTAL PROTEIN 7.6 gm/dL (6.4-8.2)
[2020-12-18 18:00] LABS: BAND 2 % (0-10); EOSINOPHIL 6 % (0-4); LYMPHOCYTE 31 % (20.0-51.0); NEUTROPHILS 56 % (42.0-75.2); PLATELET ESTIMATE NORMAL (NORMAL)
[2020-12-25 16:14] VITALS: BP 128/92; PULSE 99; TEMP 98.5
[2020-12-25 16:15] LABS: HEMOGLOBIN 11.2 g/dl (12.5-16.0); MEAN CELL VOLUME 96 fl (80.0-100.0); MEAN CORPUSCULAR HEMOGLOBIN 31 pg (27.0-31.0); MEAN CORPUSCULAR HGB CONC 32 g/dl (33.0-37.0); PLATELET COUNT 233 K/mm3 (130-400); RED BLOOD COUNT 3.65 M/mm3 (4.10-5.30); REDCELL DISTRIBUTION WIDTH-CV 12.9 % (11.5-14.5)
[2020-12-25 16:30] LABS: ALBUMIN 4.1 gm/dL (3.5-5.0); BILIRUBIN,TOTAL 0.2 mg/dL (0.0-1.0); CALCIUM 9.3 mg/dL (8.4-10.2); CREATININE, serum 1.18 (0.52-1.25); POTASSIUM 4.1 mmol/L (3.4-5.0); TOTAL PROTEIN 7.6 gm/dL (6.4-8.2)
[2020-12-25 17:41] LABS: BAND 2 % (0-10); EOSINOPHIL 4 % (0-4); HYPOCHROMIA 1+; LYMPHOCYTE 22 % (20.0-51.0); NEUTROPHILS 68 % (42.0-75.2); PLATELET ESTIMATE NORMAL (NORMAL)
[2021-01-01 15:44] VITALS: BP 131/88; PULSE 90; TEMP 98.1
[2021-01-08 17:21] LABS: HEMOGLOBIN 11.7 g/dl (12.5-16.0); MEAN CELL VOLUME 95 fl (80.0-100.0); MEAN CORPUSCULAR HEMOGLOBIN 31 pg (27.0-31.0); MEAN CORPUSCULAR HGB CONC 33 g/dl (33.0-37.0); MEAN PLATELET VOLUME 9.4 fl (7.4-10.4); PLATELET COUNT 248 K/mm3 (130-400); RED BLOOD COUNT 3.78 M/mm3 (4.10-5.30); REDCELL DISTRIBUTION WIDTH-CV 12.9 % (11.5-14.5)
[2021-01-08 17:25] LABS: ALBUMIN 4.1 gm/dL (3.5-5.0); BILIRUBIN,TOTAL 0.1 mg/dL (0.0-1.0); CREATININE, serum 0.92 (0.52-1.25); POTASSIUM 3.9 mmol/L (3.4-5.0); TOTAL PROTEIN 7.3 gm/dL (6.4-8.2)
[2021-01-08 18:03] LABS: HEMATOCRIT 35.9 % (37.0-47.0)
[2021-01-08 19:05] LABS: BASOPHIL 1 % (0-2); EOSINOPHIL 8 % (0-4); LYMPHOCYTE 25 % (20.0-51.0); MYELOCYTE 1 % (0-0); NEUTROPHILS 60 % (42.0-75.2)
[2021-01-08 19:06] LABS: HYPOCHROMIA 1+; PLATELET ESTIMATE NORMAL (NORMAL)
[2021-01-10 11:49] VITALS: BP 118/87; PULSE 93; TEMP 97.8
[2021-01-18 17:46] VITALS: BP 129/87; PULSE 119; TEMP 98.2
[2021-01-23 15:07] LABS: ALBUMIN 3.9 gm/dL (3.5-5.0); BILIRUBIN,TOTAL 0.2 mg/dL (0.0-1.0); CALCIUM 8.9 mg/dL (8.4-10.2); CREATININE, serum 0.99 (0.52-1.25); POTASSIUM 3.6 mmol/L (3.4-5.0); TOTAL PROTEIN 7.2 gm/dL (6.4-8.2)
[2021-01-23 15:16] LABS: HEMOGLOBIN 10.9 g/dl (12.5-16.0); MEAN CELL VOLUME 95 fl (80.0-100.0); MEAN CORPUSCULAR HEMOGLOBIN 30 pg (27.0-31.0); MEAN CORPUSCULAR HGB CONC 32 g/dl (33.0-37.0); MEAN PLATELET VOLUME 9.2 fl (7.4-10.4); PLATELET COUNT 298 K/mm3 (130-400); RED BLOOD COUNT 3.62 M/mm3 (4.10-5.30); REDCELL DISTRIBUTION WIDTH-CV 12.7 % (11.5-14.5)
[2021-01-23 15:17] LABS: HEMATOCRIT 34.3 % (37.0-47.0)
[2021-01-23 15:34] VITALS: BP 130/78; PULSE 105; TEMP 98.1
[2021-01-23 15:39] LABS: BAND 1 % (0-10); BASOPHIL 2 % (0-2); EOSINOPHIL 7 % (0-4); LYMPHOCYTE 14 % (20.0-51.0); MYELOCYTE 2 % (0-0); NEUTROPHILS 69 % (42.0-75.2)
[2021-01-23 15:40] LABS: HYPOCHROMIA 2+; PLATELET ESTIMATE NORMAL (NORMAL)
--- NOTE | 2021-01-25 16:29 | NUR ---
Pt did not show for today's apt.Pt called and rescheduled for Thursday per pt request.
[2021-01-29 15:05] VITALS: BP 121/68; PULSE 92; TEMP 98.6
[2021-01-31 10:54] LABS: HEMOGLOBIN 11.1 g/dl (12.5-16.0); MEAN CELL VOLUME 94 fl (80.0-100.0); MEAN CORPUSCULAR HEMOGLOBIN 31 pg (27.0-31.0); MEAN CORPUSCULAR HGB CONC 33 g/dl (33.0-37.0); PLATELET COUNT 298 K/mm3 (130-400); RED BLOOD COUNT 3.64 M/mm3 (4.10-5.30); REDCELL DISTRIBUTION WIDTH-CV 12.9 % (11.5-14.5)
[2021-01-31 10:55] LABS: HEMATOCRIT 34.2 % (37.0-47.0)
[2021-01-31 10:59] LABS: BILIRUBIN,TOTAL 0.1 mg/dL (0.0-1.0); CREATININE, serum 1.07 (0.52-1.25); POTASSIUM 3.9 mmol/L (3.4-5.0); TOTAL PROTEIN 7.3 gm/dL (6.4-8.2)
[2021-01-31 11:05] LABS: BAND 2 % (0-10); EOSINOPHIL 4 % (0-4); LYMPHOCYTE 20 % (20.0-51.0); NEUTROPHILS 67 % (42.0-75.2); PLATELET ESTIMATE NORMAL (NORMAL)
[2021-01-31 11:52] VITALS: BP 139/99; PULSE 101; TEMP 98.4
[2021-02-05 14:47] VITALS: BP 127/78; PULSE 106; TEMP 98
--- NOTE | 2021-02-07 13:56 | NUR ---
Pt stopped in [place].Dressing observed clean,dry,and intact.Pt agrees to return Thursday for dressing change.apt for Thursday cancelled per request.
[2021-02-11 15:07] VITALS: BP 114/76; PULSE 76; TEMP 98.3
[2021-02-11 15:15] LABS: HEMOGLOBIN 10.5 g/dl (12.5-16.0); MEAN CELL VOLUME 96 fl (80.0-100.0); MEAN CORPUSCULAR HEMOGLOBIN 31 pg (27.0-31.0); MEAN CORPUSCULAR HGB CONC 32 g/dl (33.0-37.0); MEAN PLATELET VOLUME 9.2 fl (7.4-10.4); PLATELET COUNT 209 K/mm3 (130-400); REDCELL DISTRIBUTION WIDTH-CV 13.2 % (11.5-14.5)
[2021-02-11 15:24] LABS: HEMATOCRIT 32.5 % (37.0-47.0)
[2021-02-11 15:36] LABS: ALANINE AMINOTRANSFERASE 51 U/L (4-34); ALBUMIN 3.9 gm/dL (3.5-5.0); ALKALINE PHOSPHATASE 78 U/L (50-136); ANION GAP 4 mmol/L (7-16); AST,SGOT 61 U/L (15-37); BILIRUBIN,TOTAL < 0.1 mg/dL (0.0-1.0); BLOOD UREA NITROGEN 23 mg/dL (7-17); CALCIUM 8.7 mg/dL (8.4-10.2); CARBON DIOXIDE 29 mmol/L (22-30); CHLORIDE 106 mmol/L (98-107); CREATININE, serum 1.26 (0.52-1.25); GLUCOSE 96 mg/dL (74-106); LACTATE DEHYDROGENASE 569 U/L (313-618); POTASSIUM 4.3 mmol/L (3.4-5.0); SODIUM 139 mmol/L (137-145); TOTAL PROTEIN 7.2 gm/dL (6.4-8.2)
[2021-02-11 17:16] LABS: EOSINOPHIL 5 % (0-4); LYMPHOCYTE 10 % (20.0-51.0); NEUTROPHILS 79 % (42.0-75.2); PLATELET ESTIMATE NORMAL (NORMAL)
[2021-02-11 17:19] LABS: HYPOCHROMIA 1+
[2021-02-15 18:26] VITALS: BP 133/88; PULSE 82; TEMP 98.2
[2021-02-20 15:25] VITALS: BP 113/78; PULSE 78; TEMP 97.9
--- NOTE | 2021-02-22 16:28 | NUR ---
Pt dressing to [facility] CD&I. Asked pt if she wanted it changed and she declined syaing " It looks good, You did a great job Thursday." No dressing change done today.
[2021-02-26 16:02] VITALS: BP 183/68; PULSE 93; TEMP 98
[2021-02-26 16:07] LABS: HEMOGLOBIN 10.5 g/dl (12.5-16.0); MEAN CELL VOLUME 95 fl (80.0-100.0); MEAN CORPUSCULAR HEMOGLOBIN 31 pg (27.0-31.0); MEAN CORPUSCULAR HGB CONC 32 g/dl (33.0-37.0); PLATELET COUNT 377 K/mm3 (130-400); RED BLOOD COUNT 3.43 M/mm3 (4.10-5.30); REDCELL DISTRIBUTION WIDTH-CV 13.8 % (11.5-14.5)
[2021-02-26 16:12] LABS: HEMATOCRIT 32.7 % (37.0-47.0)
[2021-02-26 16:18] LABS: ALBUMIN 4.2 gm/dL (3.5-5.0); BILIRUBIN,TOTAL 0.2 mg/dL (0.0-1.0); CALCIUM 8.9 mg/dL (8.4-10.2); CREATININE, serum 1.17 (0.52-1.25); POTASSIUM 4.1 mmol/L (3.4-5.0); TOTAL PROTEIN 7.4 gm/dL (6.4-8.2)
[2021-02-26 16:51] LABS: BAND 1 % (0-10); EOSINOPHIL 6 % (0-4); LYMPHOCYTE 34 % (20.0-51.0); NEUTROPHILS 46 % (42.0-75.2)
[2021-02-26 16:52] LABS: HYPOCHROMIA 1+; PLATELET ESTIMATE NORMAL (NORMAL)
[2021-03-04 14:45] VITALS: BP 110/78; PULSE 95; TEMP 98.1
[2021-03-11 13:31] VITALS: BP 123/88; PULSE 95; TEMP 97.9
[~2021-03-15] VITALS: Ht 157.5 cm; Wt 67.4 kg
[~2021-03-15 14:00] MED LIST changes: +DITROPAN 5MG TAB5 MG PO; +LEVSIN 0.10.125 MG/T PO
[2021-03-15 15:03] VITALS: BP 130/94; PULSE 86; TEMP 97.8
[2021-03-15 15:03] LABS: MEAN CELL VOLUME 94 fl (80.0-100.0); MEAN CORPUSCULAR HGB CONC 32 g/dl (33.0-37.0); MEAN PLATELET VOLUME 8.9 fl (7.4-10.4); PLATELET COUNT 278 K/mm3 (130-400); RED BLOOD COUNT 3.19 M/mm3 (4.10-5.30); REDCELL DISTRIBUTION WIDTH-CV 14.4 % (11.5-14.5)
[2021-03-15 15:08] LABS: HEMATOCRIT 29.9 % (37.0-47.0); HEMOGLOBIN 9.7 g/dl (12.5-16.0); MEAN CORPUSCULAR HEMOGLOBIN 30 pg (27.0-31.0)
[2021-03-15 15:30] LABS: BAND 2 % (0-10); EOSINOPHIL 7 % (0-4); LYMPHOCYTE 28 % (20.0-51.0); MYELOCYTE 1 % (0-0); NEUTROPHILS 59 % (42.0-75.2)
[2021-03-15 15:31] LABS: HYPOCHROMIA 2+
[2021-03-15 15:32] LABS: PLATELET ESTIMATE NORMAL (NORMAL)
[2021-03-15 16:03] LABS: ALBUMIN 3.7 gm/dL (3.5-5.0); BILIRUBIN,TOTAL 0.1 mg/dL (0.2-1.2); CALCIUM 9.1 mg/dL (8.4-10.2); CREATININE, serum 1.41 mg/dL (0.57-1.11); TOTAL PROTEIN 7.2 gm/dL (6.2-8.1)
== END 2021-03-18 | disposition home or self-care (01) ==
LOC: EUO
PROVIDERS: Family Medicine; Internal Medicine Medical Oncology
DX: C55 Malignant neoplasm of uterus, part unspecified (principal)
CPT/HCPCS: J1644

== ENCOUNTER 2021-06-03 20:54 | Emergency (ER) | payer MEDICARE, MEDICAID ==
[~2021-06-03] VITALS: Ht 157.5 cm; Wt 66.7 kg
[2021-06-03 21:39] VITALS: TEMP 98.3
[2021-06-03 22:36] LABS: MEAN CELL VOLUME 94 fl (80.0-100.0); MEAN CORPUSCULAR HEMOGLOBIN 31 pg (27-31); MEAN CORPUSCULAR HGB CONC 33 g/dl (33.0-37.0); MEAN PLATELET VOLUME 8.8 fl (7.4-10.4); PLATELET COUNT 325 K/mm3 (130-400); RED BLOOD COUNT 3.25 M/mm3 (4.10-5.30); REDCELL DISTRIBUTION WIDTH-CV 14.2 % (11.5-14.5)
[2021-06-03 22:41] LABS: ALANINE AMINOTRANSFERASE 17 U/L (0-55); ALBUMIN 3.7 gm/dL (3.5-5.0); ALKALINE PHOSPHATASE 108 U/L (40-150); ANION GAP 10 mmol/L (7-16); AST,SGOT 23 U/L (5-34); BILIRUBIN,TOTAL 0.1 mg/dL (0.2-1.2); BLOOD UREA NITROGEN 11 mg/dL (10-20); CALCIUM 9.2 mg/dL (8.4-10.2); CARBON DIOXIDE 25 mmol/L (22-29); CHLORIDE 102 mmol/L (98-107); CREATININE, serum 1.16 mg/dL (0.57-1.11); GLUCOSE 93 mg/dL (70-99); POTASSIUM 3.9 mmol/L (3.5-4.5); SODIUM 137 mmol/L (136-145); TOTAL PROTEIN 7.3 gm/dL (6.2-8.1)
[2021-06-03 22:42] LABS: HEMATOCRIT 30.4 % (37.0-47.0)
[2021-06-03 22:48] LABS: TROPONIN-I < 0.010 ng/mL (0.00-0.033)
[2021-06-03 23:13] LABS: BAND 3 % (0-10); EOSINOPHIL 4 % (0-4); LYMPHOCYTE 22 % (20.0-51.0); METAMYELOCYTE 2 % (0-0); NEUTROPHILS 57 % (42.0-75.2); PLATELET ESTIMATE NORMAL (NORMAL)
[2021-06-03] MEDS ORDERED: BACTRIM DS 8001 TAB PO (23:16)
[2021-06-04 03:10] VITALS: BP 134/91; PULSE 81
== END 2021-06-04 03:11 | disposition home or self-care (01) ==
LOC: COL.ER 20:54
PROVIDERS: Emergency Medicine
DX: R06.02 Shortness of breath (principal); D72.819 Decreased white blood cell count, unspecified; R79.89 Other specified abnormal findings of blood chemistry; M79.605 Pain in left leg; C55 Malignant neoplasm of uterus, part unspecified; Z20.822 Contact with and (suspected) exposure to COVID-19
CPT/HCPCS: Q9967

== ENCOUNTER → 2021-06-04 | Outpatient (CLI) | payer MEDICARE, MEDICAID ==
[~2021-06-04] MED LIST changes: +BACTRIM DS 8001 TAB PO
== END ==
LOC: COL.VAS 10:30
DX: M79.89 Other specified soft tissue disorders (principal)

== ENCOUNTER 2021-06-13 14:30 | Outpatient (RCR) | payer MEDICARE, MEDICAID ==
[2021-03-19 15:29] VITALS: BP 113/87; PULSE 86; TEMP 98.2
[2021-03-19 15:44] LABS: HEMOGLOBIN 10.5 g/dl (12.5-16.0); MEAN CELL VOLUME 92 fl (80.0-100.0); MEAN CORPUSCULAR HEMOGLOBIN 31 pg (27.0-31.0); MEAN CORPUSCULAR HGB CONC 33 g/dl (33.0-37.0); MEAN PLATELET VOLUME 8.8 fl (7.4-10.4); PLATELET COUNT 333 K/mm3 (130-400); RED BLOOD COUNT 3.44 M/mm3 (4.10-5.30); REDCELL DISTRIBUTION WIDTH-CV 14.5 % (11.5-14.5)
[2021-03-19 15:55] LABS: HEMATOCRIT 31.7 % (37.0-47.0)
[2021-03-19 16:10] LABS: ALBUMIN 3.7 gm/dL (3.5-5.0); BILIRUBIN,TOTAL 0.1 mg/dL (0.2-1.2); CALCIUM 9.3 mg/dL (8.4-10.2); CREATININE, serum 1.05 mg/dL (0.57-1.11); TOTAL PROTEIN 7.4 gm/dL (6.2-8.1)
[2021-03-19 16:27] LABS: BAND 3 % (0-10); EOSINOPHIL 6 % (0-4); LYMPHOCYTE 37 % (20.0-51.0); NEUTROPHILS 40 % (42.0-75.2); PLATELET ESTIMATE NORMAL (NORMAL)
[2021-03-22 18:45] VITALS: BP 118/81; PULSE 114; TEMP 98
[2021-03-27 11:33] LABS: HEMATOCRIT 34.8 % (37.0-47.0); HEMOGLOBIN 11.1 g/dl (12.5-16.0); MEAN CELL VOLUME 94 fl (80.0-100.0); MEAN CORPUSCULAR HEMOGLOBIN 30 pg (27.0-31.0); MEAN CORPUSCULAR HGB CONC 32 g/dl (33.0-37.0); MEAN PLATELET VOLUME 9.1 fl (7.4-10.4); PLATELET COUNT 279 K/mm3 (130-400); RED BLOOD COUNT 3.69 M/mm3 (4.10-5.30); REDCELL DISTRIBUTION WIDTH-CV 14.2 % (11.5-14.5)
[2021-03-27 11:42] LABS: ALBUMIN 3.4 gm/dL (3.5-5.0); BILIRUBIN,TOTAL 0.1 mg/dL (0.2-1.2); CALCIUM 9.4 mg/dL (8.4-10.2); CREATININE, serum 1.13 mg/dL (0.57-1.11); POTASSIUM 4.2 mmol/L (3.5-4.5)
[2021-03-27 12:25] LABS: BAND 1 % (0-10); EOSINOPHIL 2 % (0-4); LYMPHOCYTE 24 % (20.0-51.0); NEUTROPHILS 67 % (42.0-75.2)
[2021-03-27 12:26] LABS: HYPOCHROMIA 2+; PLATELET ESTIMATE NORMAL (NORMAL)
[2021-03-27 12:46] LABS: TOTAL PROTEIN 7.3 gm/dL (6.2-8.1)
[2021-03-28 15:20] VITALS: BP 119/84; PULSE 110; TEMP 98.4
[2021-04-02 17:25] VITALS: BP 106/88; PULSE 97; TEMP 98.5
[2021-04-05 15:40] VITALS: BP 127/89; PULSE 91; TEMP 98.7
[2021-04-09 14:58] VITALS: BP 122/80; PULSE 88; TEMP 98
[2021-04-09 15:04] LABS: HEMOGLOBIN 10.2 g/dl (12.5-16.0); MEAN CELL VOLUME 98 fl (80.0-100.0); MEAN CORPUSCULAR HEMOGLOBIN 31 pg (27.0-31.0); MEAN CORPUSCULAR HGB CONC 32 g/dl (33.0-37.0); MEAN PLATELET VOLUME 9.1 fl (7.4-10.4); PLATELET COUNT 316 K/mm3 (130-400); RED BLOOD COUNT 3.29 M/mm3 (4.10-5.30); REDCELL DISTRIBUTION WIDTH-CV 14.8 % (11.5-14.5)
[2021-04-09 15:11] LABS: ALBUMIN 3.5 gm/dL (3.5-5.0); BILIRUBIN,TOTAL 0.2 mg/dL (0.2-1.2); CALCIUM 9.5 mg/dL (8.4-10.2); CREATININE, serum 1.06 mg/dL (0.57-1.11); POTASSIUM 4.1 mmol/L (3.5-4.5); TOTAL PROTEIN 7.1 gm/dL (6.2-8.1)
[2021-04-09 15:24] LABS: HEMATOCRIT 32.1 % (37.0-47.0)
[2021-04-09 15:53] LABS: EOSINOPHIL 8 % (0-4); HYPOCHROMIA 2+; LYMPHOCYTE 31 % (20.0-51.0); NEUTROPHILS 55 % (42.0-75.2); PLATELET ESTIMATE NORMAL (NORMAL)
[2021-04-12 14:25] VITALS: BP 139/93; PULSE 67; TEMP 98
[2021-04-16 15:35] VITALS: BP 126/83; PULSE 94; TEMP 98.1
[2021-04-19 17:01] VITALS: BP 125/81; PULSE 102; TEMP 98.2
[2021-04-25 14:33] LABS: HEMOGLOBIN 10.8 g/dl (12.5-16.0); MEAN CELL VOLUME 96 fl (80.0-100.0); MEAN CORPUSCULAR HEMOGLOBIN 31 pg (27.0-31.0); MEAN CORPUSCULAR HGB CONC 32 g/dl (33.0-37.0); PLATELET COUNT 248 K/mm3 (130-400); RED BLOOD COUNT 3.51 M/mm3 (4.10-5.30); REDCELL DISTRIBUTION WIDTH-CV 15.1 % (11.5-14.5)
[2021-04-25 14:57] LABS: HEMATOCRIT 33.7 % (37.0-47.0)
[2021-04-25 15:00] VITALS: BP 133/85; PULSE 99; TEMP 98.3
[2021-04-25 15:38] LABS: EOSINOPHIL 4 % (0-4); LYMPHOCYTE 34 % (20.0-51.0); NEUTROPHILS 59 % (42.0-75.2)
[2021-04-25 15:39] LABS: PLATELET ESTIMATE NORMAL (NORMAL)
[2021-05-14 14:53] VITALS: BP 116/80; PULSE 114; TEMP 98.6
[2021-05-14 14:53] LABS: HEMOGLOBIN 11.1 g/dl (12.5-16.0); MEAN CELL VOLUME 93 fl (80.0-100.0); MEAN CORPUSCULAR HEMOGLOBIN 31 pg (27.0-31.0); MEAN CORPUSCULAR HGB CONC 33 g/dl (33.0-37.0); MEAN PLATELET VOLUME 8.8 fl (7.4-10.4); PLATELET COUNT 290 K/mm3 (130-400); RED BLOOD COUNT 3.61 M/mm3 (4.10-5.30)
[2021-05-14 14:57] LABS: HEMATOCRIT 33.5 % (37.0-47.0)
[2021-05-14 15:09] LABS: BAND 3 % (0-10); LYMPHOCYTE 30 % (20.0-51.0); METAMYELOCYTE 1 % (0-0); NEUTROPHILS 56 % (42.0-75.2); PLATELET ESTIMATE NORMAL (NORMAL)
[2021-05-17 15:39] VITALS: BP 127/86; PULSE 96; TEMP 98.7
[2021-05-21 14:03] LABS: HEMOGLOBIN 10.2 g/dl (12.5-16.0); MEAN CELL VOLUME 95 fl (80.0-100.0); MEAN CORPUSCULAR HEMOGLOBIN 31 pg (27.0-31.0); MEAN CORPUSCULAR HGB CONC 32 g/dl (33.0-37.0); MEAN PLATELET VOLUME 8.9 fl (7.4-10.4); PLATELET COUNT 270 K/mm3 (130-400); RED BLOOD COUNT 3.34 M/mm3 (4.10-5.30); REDCELL DISTRIBUTION WIDTH-CV 14.7 % (11.5-14.5)
[2021-05-21 14:07] VITALS: BP 120/70; PULSE 75; TEMP 98.2
[2021-05-21 14:10] LABS: HEMATOCRIT 31.6 % (37.0-47.0)
[2021-05-21 15:42] LABS: BAND 2 % (0-10); BASOPHIL 1 % (0-2); LYMPHOCYTE 28 % (20.0-51.0); NEUTROPHILS 65 % (42.0-75.2); PLATELET ESTIMATE NORMAL (NORMAL)
[2021-05-28 17:00] VITALS: BP 127/93; PULSE 107; TEMP 98.5
[2021-05-28 17:55] LABS: MEAN CELL VOLUME 95 fl (80.0-100.0); MEAN CORPUSCULAR HGB CONC 32 g/dl (33.0-37.0); MEAN PLATELET VOLUME 9.2 fl (7.4-10.4); PLATELET COUNT 321 K/mm3 (130-400); RED BLOOD COUNT 3.18 M/mm3 (4.10-5.30); REDCELL DISTRIBUTION WIDTH-CV 14.3 % (11.5-14.5)
[2021-05-28 17:56] LABS: HEMATOCRIT 30.1 % (37.0-47.0); HEMOGLOBIN 9.7 g/dl (12.5-16.0); MEAN CORPUSCULAR HEMOGLOBIN 31 pg (27-31)
[2021-05-28 18:51] LABS: BAND 4 % (0-10); EOSINOPHIL 2 % (0-4); LYMPHOCYTE 24 % (20.0-51.0); METAMYELOCYTE 1 % (0-0); NEUTROPHILS 62 % (42.0-75.2)
[2021-05-28 18:52] LABS: PLATELET ESTIMATE NORMAL (NORMAL)
[2021-06-04 12:18] LABS: HEMOGLOBIN 10.1 g/dl (12.5-16.0); MEAN CELL VOLUME 92 fl (80.0-100.0); MEAN CORPUSCULAR HEMOGLOBIN 31 pg (27-31); MEAN CORPUSCULAR HGB CONC 33 g/dl (33.0-37.0); MEAN PLATELET VOLUME 8.9 fl (7.4-10.4); PLATELET COUNT 348 K/mm3 (130-400); RED BLOOD COUNT 3.28 M/mm3 (4.10-5.30); REDCELL DISTRIBUTION WIDTH-CV 14.1 % (11.5-14.5)
[2021-06-04 12:21] VITALS: BP 122/84; PULSE 86; TEMP 97.6
[2021-06-04 12:21] LABS: HEMATOCRIT 30.3 % (37.0-47.0)
[2021-06-04 12:41] LABS: ALBUMIN 3.7 gm/dL (3.5-5.0); BILIRUBIN,TOTAL 0.2 mg/dL (0.2-1.2); CALCIUM 9.3 mg/dL (8.4-10.2); CREATININE, serum 1.19 mg/dL (0.57-1.11); TOTAL PROTEIN 7.4 gm/dL (6.2-8.1)
[2021-06-04 12:42] LABS: BAND 4 % (0-10); EOSINOPHIL 8 % (0-4); LYMPHOCYTE 37 % (20.0-51.0); MYELOCYTE 1 % (0-0); NEUTROPHILS 48 % (42.0-75.2); PLATELET ESTIMATE NORMAL (NORMAL)
--- NOTE | 2021-06-11 14:21 | NUR ---
Pt arrived,dressing observed intact.Pt reports she is due at [facility] office to supervisor varnish chemo pump.Per pt request she will have labs drawn at office.
--- NOTE | 2021-06-11 14:41 | NUR ---
Notified office pt left prior to cbc draw.Per Zonia,they can draw at office.
[~2021-06-13] VITALS: Ht 157.5 cm; Wt 68.1 kg
[2021-06-13 14:25] VITALS: BP 114/75; PULSE 95; TEMP 98.1
== END 2021-06-13 18:31 | disposition home or self-care (01) ==
LOC: EUO 14:30
PROVIDERS: Internal Medicine Medical Oncology
DX: C55 Malignant neoplasm of uterus, part unspecified (principal)
CPT/HCPCS: J1644

== ENCOUNTER 2021-06-20 14:00 | Outpatient (RCR) | payer MEDICARE, MEDICAID ==
[2021-06-18 16:05] LABS: HEMOGLOBIN 10.8 g/dl (12.5-16.0); MEAN CELL VOLUME 95 fl (80.0-100.0); MEAN CORPUSCULAR HEMOGLOBIN 31 pg (27-31); MEAN CORPUSCULAR HGB CONC 33 g/dl (33.0-37.0); PLATELET COUNT 259 K/mm3 (130-400); RED BLOOD COUNT 3.49 M/mm3 (4.10-5.30); REDCELL DISTRIBUTION WIDTH-CV 14.5 % (11.5-14.5)
[2021-06-18 16:11] VITALS: BP 152/83; PULSE 101; TEMP 98.7
[2021-06-18 16:25] LABS: BAND 1 % (0-10); EOSINOPHIL 8 % (0-4); LYMPHOCYTE 22 % (20.0-51.0); NEUTROPHILS 65 % (42.0-75.2); PLATELET ESTIMATE NORMAL (NORMAL)
[~2021-06-20] VITALS: Ht 157.5 cm; Wt 68.7 kg
--- NOTE | 2021-06-27 16:21 | NUR ---
Pt called to report central line removed at .Ofiice notified to request dc lab orders at [facility].Spoke with Calyl Paredes.
== END 2021-06-27 16:22 | disposition still patient (30) ==
LOC: EUO 14:00
PROVIDERS: Internal Medicine Medical Oncology
DX: C55 Malignant neoplasm of uterus, part unspecified (principal)

== ENCOUNTER → 2021-07-25 | Outpatient (CLI) | payer MEDICARE, MEDICAID ==
[2021-07-25 17:16] LABS: HEMOGLOBIN 10.3 g/dl (12.5-16.0); MEAN CELL VOLUME 92 fl (80.0-100.0); MEAN CORPUSCULAR HEMOGLOBIN 30 pg (27-31); MEAN CORPUSCULAR HGB CONC 33 g/dl (33.0-37.0); MEAN PLATELET VOLUME 8.8 fl (7.4-10.4); PLATELET COUNT 314 K/mm3 (130-400); RED BLOOD COUNT 3.41 M/mm3 (4.10-5.30); REDCELL DISTRIBUTION WIDTH-CV 13.8 % (11.5-14.5)
[2021-07-25 17:29] LABS: ALBUMIN 3.5 gm/dL (3.5-5.0); BILIRUBIN,TOTAL 0.2 mg/dL (0.2-1.2); CALCIUM 8.7 mg/dL (8.4-10.2); CREATININE, serum 1.12 mg/dL (0.57-1.11); POTASSIUM 3.9 mmol/L (3.5-4.5); TOTAL PROTEIN 7.1 gm/dL (6.2-8.1)
[2021-07-25 17:48] LABS: THYROID STIMULATING HORMONE 14.474 uIU/mL (0.350-4.940)
[2021-07-25 17:49] LABS: HEMATOCRIT 31.5 % (37.0-47.0)
[2021-07-25 18:09] LABS: BAND 2 % (0-10); EOSINOPHIL 1 % (0-4); LYMPHOCYTE 14 % (20.0-51.0); NEUTROPHILS 80 % (42.0-75.2); PLATELET ESTIMATE NORMAL (NORMAL)
== END ==
LOC: COL.LAB 16:30
PROVIDERS: Internal Medicine Hematology & Oncology
DX: C55 Malignant neoplasm of uterus, part unspecified (principal); C49.9 Malignant neoplasm of connective and soft tissue, unspecified

== ENCOUNTER 2021-07-26 15:51 | Emergency (ER) | payer MEDICARE, MEDICAID ==
[~2021-07-26] VITALS: Ht 162.6 cm; Wt 70.5 kg
[2021-07-26 15:57] VITALS: TEMP 98.1
[2021-07-26 16:43] LABS: BASO # 0.1 K/mm3 (0.0-0.2); EOS # 0.2 K/mm3 (0.0-0.7); EOS % 2.4 % (0.0-4.0); GRAN # 4.7 K/mm3 (1.4-6.5); GRAN % 75.8 % (42.2-75.2); HEMOGLOBIN 10.1 g/dl (12.5-16.0); LYMPH # 0.9 K/mm3 (1.2-3.4); LYMPH % 13.8 % (20.0-51.0); MEAN CELL VOLUME 93 fl (80.0-100.0); MEAN CORPUSCULAR HEMOGLOBIN 30 pg (27-31); MEAN CORPUSCULAR HGB CONC 32 g/dl (33.0-37.0); MEAN PLATELET VOLUME 8.8 fl (7.4-10.4); MONO # 0.4 K/mm3 (0.1-0.6); MONO % 6.7 % (1.7-9.3); PLATELET COUNT 321 K/mm3 (130-400); RED BLOOD COUNT 3.39 M/mm3 (4.10-5.30); REDCELL DISTRIBUTION WIDTH-CV 13.8 % (11.5-14.5)
[2021-07-26 16:47] LABS: HEMATOCRIT 31.5 % (37.0-47.0)
[2021-07-26 16:59] LABS: ALBUMIN 3.2 gm/dL (3.5-5.0); BILIRUBIN,TOTAL 0.3 mg/dL (0.2-1.2); C-REACTIVE PROTEIN 4.86 mg/dL (0.00-0.50); CALCIUM 8.5 mg/dL (8.4-10.2); CREATININE, serum 0.99 mg/dL (0.57-1.11); POTASSIUM 4.3 mmol/L (3.5-4.5); TOTAL PROTEIN 6.8 gm/dL (6.2-8.1)
[2021-07-26 18:54] LABS: COLLECTION METHOD CLEAN CATCH
[2021-07-26 19:10] LABS: BUDDING YEAST Present (NOT PRESENT); MUCOUS Present (NOT PRESENT); PH 6 (5-8); SQUAMOUS EPITHELIAL None Seen /hpf (0-10); URINE APPEARANCE Cloudy (CLEAR/HAZY); URINE BACTERIA Rare /hpf (NONE SEEN); URINE BILIRUBIN Negative (NEGATIVE); URINE BLOOD 2+ (NEGATIVE); URINE COLOR Yellow (YELLOW); URINE GLUCOSE Negative (NEGATIVE); URINE KETONE Negative (NEGATIVE); URINE LEUKOCYTE ESTERASE 3+ (NEGATIVE); URINE NITRATE Negative (NEGATIVE); URINE PROTEIN(semi-quant) 2+ (NEGATIVE); URINE RBC 20-50 /hpf (0-2); URINE UROBILINOGEN Negative (NEGATIVE)
[2021-07-26 20:47] VITALS: BP 125/68; PULSE 91
== END 2021-07-26 20:47 | disposition short-term general hospital (02) ==
LOC: COL.ER 15:51
PROVIDERS: Family Medicine
DX: C76.52 Malignant neoplasm of left lower limb (principal); J94.2 Hemothorax; I89.0 Lymphedema, not elsewhere classified
CPT/HCPCS: J2270; J2405; J7120; Q9967

== ENCOUNTER 2021-09-14 03:29 | Observation (INO) | payer MEDICARE, MEDICAID ==
[~2021-09-14] VITALS: Ht 157.5 cm; Wt 65.9 kg
[~2021-09-14 03:29] MED LIST changes: +ROXICODONE15 MG PO
[2021-09-14 04:40] LABS: BASO # 0.1 K/mm3 (0.0-0.2); BASO % 0.6 % (0.0-2.0); EOS # 0.2 K/mm3 (0.0-0.7); EOS % 2.7 % (0.0-4.0); GRAN # 6.5 K/mm3 (1.4-6.5); GRAN % 76.2 % (42.2-75.2); LYMPH % 11.6 % (20.0-51.0); MEAN CELL VOLUME 86 fl (80.0-100.0); MEAN CORPUSCULAR HGB CONC 32 g/dl (33.0-37.0); MEAN PLATELET VOLUME 8.8 fl (7.4-10.4); MONO # 0.7 K/mm3 (0.1-0.6); MONO % 8.5 % (1.7-9.3); PLATELET COUNT 281 K/mm3 (130-400); RED BLOOD COUNT 2.64 M/mm3 (4.10-5.30); REDCELL DISTRIBUTION WIDTH-CV 15.9 % (11.5-14.5)
[2021-09-14 04:41] LABS: HEMATOCRIT 22.7 % (37.0-47.0); HEMOGLOBIN 7.2 g/dl (12.5-16.0); MEAN CORPUSCULAR HEMOGLOBIN 27 pg (27-31)
[2021-09-14 04:53] LABS: BILIRUBIN,TOTAL 0.4 mg/dL (0.2-1.2); CALCIUM 8.8 mg/dL (8.4-10.2); CREATININE, serum 0.91 mg/dL (0.57-1.11); POTASSIUM 3.8 mmol/L (3.5-4.5)
[2021-09-14] MEDS ORDERED: SYNTHROID0.112 MG/T PO (06:05)
--- NOTE | 2021-09-14 06:07 | NUR ---
PT ARRIVES TO MEDICAL FLOOR ROOM 309 BY ED STAFF AT 0550, PT INDEPENDENT, A/OX4, 02 ROOM AIR, PT SOA ON AMBULATION, VSS, PT REPORTS PAIN TO RL BACK AND REPORTS PAIN NEAR CLAVICLE. ASSESMENT COMPLETE, MED REC COMPLETE, PT HAS HER OWN MEDICATIONS, THIS NURSE AND PT AGREED THAT PTS MOTHER WOULD A P SUPERVISOR PTS SUPPLY AND TAKE HOME. POC D/W PT, PT ORIENTED TO FLOOR AND HOSPITAL POLICY. ALL QUESTIONS/NEEDS ANSWERED AT THIS TIME. CALL LIGHT WTIHIN REACH.
[2021-09-14 06:10] VITALS: BP 96/50; PULSE 108; TEMP 98.4
[2021-09-14 06:45] LABS: INR 1.6 (0.8-3.0); PROTHROMBIN TIME 17.4 SECONDS (9.7-12.8)
[2021-09-14 07:36] VITALS: BP 104/74; PULSE 121; TEMP 98.5
--- NOTE | 2021-09-14 07:39 | NUR ---
THIS NURSE CALLED PULMOLOGY CONSULT IN. DR LIANG AWARE OF PT/CONSULT.
--- NOTE | 2021-09-14 08:45 | NUR ---
Shift assessment performed. PRN pain medication given for sharp pain rated a 10/10. Pain is located under right breast and wraps around to patient's back. Exacerbated by deep breaths but patient states that it is constantly present. Patient on RA. Patient very teary eyed about current situation. Patient informed that there are people here to help support her. Patient tachy, all other VSS. Patient denies any further pain, discomfort, SOA, or further needs at this time. Patient A&O. Call light in reach.
--- NOTE | 2021-09-14 10:22 | NUR ---
PRN pain medication given for unrelieved pain.
--- NOTE | 2021-09-14 11:47 | NUR ---
Patient deemed fit for discharge home. IV DC'd catheter intact, no signs of phlebitis. Discharge intructions/education given. All questions answered. VSS. Patient A&O. Patient denies any further needs at this time. Patient escorted from building via wheelchair by [facility] Staff. Significant other transporting home.
[2021-09-18] MEDS ORDERED: MS CONTIN 330 MG/TAB PO (12:44)
== END 2021-09-14 11:40 | disposition home or self-care (01) ==
LOC: COL.ER 03:29 → MEDICAL 04:46 → COL.ER 04:46 → MEDICAL 05:26
PROVIDERS: Personal Emergency Response Attendant; Student in an Organized Health Care Education/Training Program; ADMIT Internal Medicine
DX: C78.01 Secondary malignant neoplasm of right lung (principal); C79.89 Secondary malignant neoplasm of other specified sites; J91.0 Malignant pleural effusion; N13.30 Unspecified hydronephrosis; C55 Malignant neoplasm of uterus, part unspecified; J98.09 Other diseases of bronchus, not elsewhere classified; D64.9 Anemia, unspecified; G89.29 Other chronic pain
CPT/HCPCS: G0378; J2270; J2405; Q9967

== ENCOUNTER 2021-09-18 09:00 | Outpatient (RCR) | payer MEDICARE, MEDICAID ==
[~2021-09-18] VITALS: Ht 157.5 cm; Wt 68.0 kg
[2021-09-18] VITALS (9 sets, daily range): BP systolic 106–121; BP diastolic 75–81; PULSE 93–107; TEMP 97.4–98.5
[~2021-09-18 09:00] MED LIST changes: +SYNTHROID0.112 MG/T PO
[2021-09-18] MEDS ORDERED: MS CONTIN 115 MG/TAB PO (12:44)
[2021-09-18] MEDS ORDERED: COMPAZINE 110 MG/TAB PO (12:45)
[2021-09-18] MEDS ORDERED: DECADRON 4MG TAB4 MG PO (12:47)
[2021-09-18] MEDS ORDERED: ZOFRAN8 MG PO (12:48)
--- NOTE | 2021-09-18 17:02 | NUR ---
Pt tolerated 2 units without incident, vital signs remained stable; port to L upper chest deaccessed per protocol; pt verbalized comfort in discharging; pt discharged via wheelchair to private vehicle at 1640.
== END 2021-09-18 16:40 | disposition home or self-care (01) ==
LOC: EUO 09:00
DX: D64.9 Anemia, unspecified (principal)
CPT/HCPCS: J1644; J7050; P9016

== ENCOUNTER 2021-10-16 09:00 | Outpatient (RCR) | payer MEDICARE, MEDICAID ==
[~2021-10-16] VITALS: Ht 157.5 cm; Wt 67.6 kg
[~2021-10-16 09:00] MED LIST changes: +COMPAZINE 110 MG/TAB PO
[2021-10-16 10:38] VITALS: BP 112/80; PULSE 95; TEMP 97.7
[2021-10-16 11:07] VITALS: BP 114/70; PULSE 88; TEMP 98.1
[2021-10-16 11:22] VITALS: BP 103/87; PULSE 86; TEMP 98.1
[2021-10-16 11:52] VITALS: BP 103/68; PULSE 88; TEMP 97.8
[2021-10-16 12:50] VITALS: BP 110/74; PULSE 87; TEMP 97.1
== END 2021-10-16 14:00 ==
LOC: EDSTATUS 09:00 → EUO 09:00
DX: C55 Malignant neoplasm of uterus, part unspecified (principal)
CPT/HCPCS: J1644; J7050; P9016

== ENCOUNTER 2021-12-03 20:52 | Emergency (ER) | payer MEDICARE, MEDICAID ==
[~2021-12-03] VITALS: Ht 157.5 cm; Wt 61.4 kg
[2021-12-03 21:04] VITALS: TEMP 97.5
[2021-12-03] MEDS ORDERED: BACTRIM DS 8001 TAB PO (22:14)
[2021-12-03 22:46] VITALS: BP 108/72; PULSE 123
== END 2021-12-03 23:00 | disposition home or self-care (01) ==
LOC: COL.ER 20:52
DX: S60.551A Superficial foreign body of right hand, initial encounter (principal); L03.113 Cellulitis of right upper limb; C80.1 Malignant (primary) neoplasm, unspecified; Z28.310 Unvaccinated for COVID-19; W25.XXXA Contact with sharp glass, initial encounter

== ENCOUNTER 2022-02-07 17:13 | Emergency (ER) | payer MEDICARE, MEDICAID ==
[~2022-02-07] VITALS: Ht 157.5 cm; Wt 65.9 kg
[2022-02-07 17:51] VITALS: TEMP 97
[2022-02-07 18:54] LABS: MEAN CELL VOLUME 89 fl (80.0-100.0); MEAN CORPUSCULAR HGB CONC 30 g/dl (33.0-37.0); PLATELET COUNT 301 K/mm3 (130-400); RED BLOOD COUNT 2.92 M/mm3 (4.10-5.30); REDCELL DISTRIBUTION WIDTH-CV 18.1 % (11.5-14.5)
[2022-02-07 18:56] LABS: HEMATOCRIT 26.1 % (37.0-47.0); HEMOGLOBIN 7.9 g/dl (12.5-16.0); MEAN CORPUSCULAR HEMOGLOBIN 27 pg (27-31)
[2022-02-07 19:05] LABS: ALBUMIN 2.4 gm/dL (3.5-5.0); BILIRUBIN,TOTAL 0.4 mg/dL (0.2-1.2); C-REACTIVE PROTEIN 6.23 mg/dL (0.00-0.50); CALCIUM 8.5 mg/dL (8.4-10.2); CREATININE, serum 0.95 mg/dL (0.57-1.11); POTASSIUM 3.6 mmol/L (3.5-4.5); TOTAL PROTEIN 5.3 gm/dL (6.2-8.1)
[2022-02-07 19:39] LABS: COLLECTION METHOD CLEAN CATCH
[2022-02-07 19:45] LABS: URINE APPEARANCE Hazy (CLEAR/HAZY); URINE BLOOD 3+ (NEGATIVE); URINE COLOR Yellow (YELLOW); URINE GLUCOSE Negative (NEGATIVE); URINE KETONE Negative (NEGATIVE); URINE NITRATE Negative (NEGATIVE); URINE PROTEIN(semi-quant) 2+ (NEGATIVE); URINE UROBILINOGEN 0.2 E.U/dL (0.2-1.0)
[2022-02-07 19:59] LABS: BAND 5 % (0-10); EOSINOPHIL 3 % (0-4); LYMPHOCYTE 13 % (20.0-51.0); METAMYELOCYTE 2 % (0-0); NEUTROPHILS 77 % (42.0-75.2); PLATELET ESTIMATE NORMAL (NORMAL)
[2022-02-07 20:00] LABS: HYPOCHROMIA 3+
[2022-02-07 20:02] LABS: ANISOCYTOSIS 2+; POLYCHROMASIA 1+
[2022-02-07 20:03] LABS: SCHISTOCYTES 1+
[2022-02-07 20:07] LABS: SQUAMOUS EPITHELIAL 0-2 /hpf (0-10); URINE BACTERIA None Seen /hpf (NONE SEEN); URINE RBC >50 /hpf (0-2)
[2022-02-07] MEDS ORDERED: K-DUR 10 MEQ T10 MEQ PO (20:17)
[2022-02-07] MEDS ORDERED: LASIX 40MG TABL40 MG PO (20:17)
[2022-02-07 20:44] VITALS: BP 107/97; PULSE 112
== END 2022-02-07 20:40 | disposition home or self-care (01) ==
LOC: COL.ER 17:13
PROVIDERS: Family Medicine
DX: C76.1 Malignant neoplasm of thorax (principal); R60.9 Edema, unspecified
CPT/HCPCS: J1644; J1940; J2270; J2405; J7120